=== PATIENT | female | born 1940 | race Caucasian/White ===

== ENCOUNTER 2017-06-14 09:13 | Day surgery (SDC) | payer MEDICARE, OTHER ==
[2017-06-07 14:27] VITALS: BMI 22.6
[~2017-06-14 09:13] MED LIST: LACTATED RINGERS 1,000 ML IV SCH; LIDOCAINE 1% 20 ML VIAL (10MG/ML) FOR IV START INTRADERMA PRN
[2017-06-14 10:04] VITALS: RESP 16; TEMP 97.9
[2017-06-14] MEDS: CYCLOPENTOLATE 1% OPHTH SOLN 2 ML BTL OP ONE ×3 (10:12→10:24)
[2017-06-14] MEDS: KETOROLAC 0.5% OPHTH DROPS 3 ML BTL OP ONE ×3 (10:14→10:26)
[2017-06-14] MEDS: PHENYLEPHRINE 10% OPHTH DROPS 5 ML BTL OP ONE ×3 (10:16→10:28)
[2017-06-14] MEDS: BUPIVACAINE (PF) 0.75% 5 ML, LIDOCAINE 4% (PF) 5 ML, HYALURONIDASE, HUMAN RECOMB 150 UNIT MISCELLANE ONE ×6 (11:32→11:37)
[2017-06-14] MEDS: GENTAMICIN/PREDNISOL AC OPHTH OINT 3.5GM OPHTHALMIC ONE ×2 (11:32→11:37)
[2017-06-14] MEDS ORDERED: PROPOFOL 10 MG/ML 20 ML VIAL IV ONE (11:32)
[2017-06-14] MEDS: TIMOLOL 0.5% OPHTH SOLN (PF) 0.2 ML DROPERETTE OP ONE ×2 (11:32→11:37)
[2017-06-14] MEDS ORDERED: BALANCED SALT IRRIG SOLN COMB2 15 ML IRRIG.SOLN INTRAOCULA ONE (11:37)
[2017-06-14] MEDS ORDERED: EPINEPHrine (PF) 0.5 ML in BALANCED SALT IRRIG SOLN COMB2 500 ML IRRIGATION ONE (11:37)
[2017-06-14] MEDS ORDERED: HYALURONATE SODIUM INTRAOCULAR 1 EACH SYRINGE (10MG/ML) INTRAOCULA ONE (11:37)
--- NOTE | 2017-06-14 11:51 | P.OP ---
Date of Procedure: 06/14/17 Preoperative Diagnosis: Postoperative Diagnosis: Procedure(s) Performed: PREOPERATIVE DIAGNOSIS: Cataract, left eye. POSTOPERATIVE DIAGNOSIS: Cataract, left eye. OPERATION: Phacoemulsification cataract, left eye. DESCRIPTION OF PROCEDURE: The patient was taken to the preoperative holding area. Intravenous Propofol was given so as to bring about adequate sedation. The following mixture was given for local anesthesia: 5 mL of 2% lidocaine, 5 mL of 0.75% Marcaine, and 1 mL of Wydase. Approximately 4 mL was injected in the retrobulbar space of the surgical eye. Additional 1 mL was then directed to the temporal area of the surgical eye. This was performed to allow adequate neurological block of the facial muscles. The patient was revived and then taken into the operative room. The patient was prepped and draped in the usual sterile manner for the operative eye. A lid speculum was put into position. The conjunctiva was resected back from the limbus in the 12 o'clock position. Bleeding was controlled with electrocautery. A #69 blade was then used and a half-thickness scleral incision approximately 1-mm posterior to the limbus was made on bare sclera. This was shelved in the clear cornea using a crescent knife. Next a 15-degree blade was used to make a stab incision at the 3 o' clock position at the corneolimbal interface. Keratome blade was then used and the superior wound was extended into the anterior chamber. Viscoelastic was injected into the anterior chamber and to maintain its form. Next, a cystotome was used and a continuous anterior capsulotomy was made without difficulty. Hydrodissection using a blunt cannula and BSS was performed. Phaco probe was then employed and a groove extending from 12 to 6 o'clock in the lens was created. A Soto wand was used through the stab incision so as to perform a divide and conquer technique. Next an irrigation aspiration probe was utilized and any residual cortex was removed from the eye. Again, viscoelastic was injected into the anterior chamber. An Aries posterior chamber lens implant was placed in the cartridge and injected into the anterior chamber without difficulty. The HaveMyShiftey hook was utilized to spin the lens into position and this was again performed without any difficulty. The irrigation and aspiration probe was again employed and any residual viscoelastic was removed from the eye. Then BSS was injected into the limbal stab incision and the anterior chamber re-inflated. The conjunctiva was reapproximated using electrocautery. One drop of 0.25% Timoptic was placed over the corneal along with TobraDex ophthalmic ointment. Two sterile patches and a Calderon eye shield were taped into position. The patient was transported to the recovery room in stable condition. Implants: Pathology: none sent Condition: stable Disposition: same day Indications for Procedure: Operative Findings: Description of Procedure:
[2017-06-14 12:09] VITALS: BP 133/59; PULSE 67
== END 2017-06-14 12:30 | disposition home or self-care (01) ==
LOC: OR 09:13
PROVIDERS: ATTEND Ophthalmology
DX: H26.9 Unspecified cataract (principal); I10 Essential (primary) hypertension; G80.9 Cerebral palsy, unspecified; Z86.73 Personal history of transient ischemic attack (TIA), and cerebral infarction without residual deficits; Z88.1 Allergy status to other antibiotic agents; Z79.899 Other long term (current) drug therapy; Z79.82 Long term (current) use of aspirin
CPT/HCPCS: 66984; V2632; J2001; J3470; J0171; J2704

== ENCOUNTER 2017-07-26 11:53 | Day surgery (SDC) | payer MEDICARE, OTHER ==
[2017-07-20 13:58] VITALS: BMI 22.6
[~2017-07-26 11:53] MED LIST changes: -LIDOCAINE 1% 20 ML VIAL (10MG/ML) FOR IV START INTRADERMA PRN
[2017-07-26 12:49] VITALS: TEMP 97.3
[2017-07-26] MEDS: CYCLOPENTOLATE 1% OPHTH SOLN 2 ML BTL OP ONE ×3 (12:51→13:11)
[2017-07-26] MEDS: KETOROLAC 0.5% OPHTH DROPS 5 ML BTL OP ONE ×3 (12:54→13:13)
[2017-07-26] MEDS: PHENYLEPHRINE 10% OPHTH DROPS 5 ML BTL OP ONE ×3 (12:56→13:15)
[2017-07-26] MEDS ORDERED: LIDOCAINE 1% 20 ML VIAL (10MG/ML) FOR IV START INTRADERMA ONE (13:17)
[2017-07-26] MEDS ORDERED: LIDOCAINE 1% INJ 10MG/ML (20 ML MDV) ONE (13:52)
[2017-07-26] MEDS ORDERED: PROPOFOL 10 MG/ML 20 ML VIAL IV ONE (13:52)
[2017-07-26] MEDS ORDERED: EPINEPHrine (PF) 0.5 ML in BALANCED SALT IRRIG SOLN COMB2 500 ML IRRIGATION ONE (13:58)
[2017-07-26] MEDS ORDERED: HYALURONATE SODIUM INTRAOCULAR 1 EACH SYRINGE (10MG/ML) INTRAOCULA ONE (13:59)
[2017-07-26] MEDS ORDERED: BALANCED SALT IRRIG SOLN COMB2 15 ML IRRIG.SOLN INTRAOCULA ONE (13:59)
[2017-07-26] MEDS ORDERED: TIMOLOL 0.5% OPHTH SOLN (PF) 0.2 ML DROPERETTE RIGHT EYE ONE (14:00)
--- NOTE | 2017-07-26 14:13 | P.OP ---
Date of Procedure: 07/26/17 Procedure(s) Performed: PREOPERATIVE DIAGNOSIS: Cataract, right eye. POSTOPERATIVE DIAGNOSIS: Cataract, right eye. OPERATION: Phacoemulsification cataract, right eye. DESCRIPTION OF PROCEDURE: The patient was taken to the preoperative holding area. Intravenous Propofol was given so as to bring about adequate sedation. The following mixture was given for local anesthesia: 5 mL of 2% lidocaine, 5 mL of 0.75% Marcaine, and 1 mL of Wydase. Approximately 4 mL was injected in the retrobulbar space of the surgical eye. Additional 1 mL was then directed to the temporal area of the surgical eye. This was performed to allow adequate neurological block of the facial muscles. The patient was revived and then taken into the operative room. The patient was prepped and draped in the usual sterile manner for the operative eye. A lid speculum was put into position. The conjunctiva was resected back from the limbus in the 12 o'clock position. Bleeding was controlled with electrocautery. A #69 blade was then used and a half-thickness scleral incision approximately 1-mm posterior to the limbus was made on bare sclera. This was shelved in the clear cornea using a crescent knife. Next a 15-degree blade was used to make a stab incision at the 3 o' clock position at the corneolimbal interface. Keratome blade was then used and the superior wound was extended into the anterior chamber. Viscoelastic was injected into the anterior chamber and to maintain its form. Next, a cystotome was used and a continuous anterior capsulotomy was made without difficulty. Hydrodissection using a blunt cannula and BSS was performed. Phaco probe was then employed and a groove extending from 12 to 6 o'clock in the lens was created. A Soto wand was used through the stab incision so as to perform a divide and conquer technique. Next an irrigation aspiration probe was utilized and any residual cortex was removed from the eye. Again, viscoelastic was injected into the anterior chamber. An Aries posterior chamber lens implant was placed in the cartridge and injected into the anterior chamber without difficulty. The [employer]Hy[employer]ey hook was utilized to spin the lens into position and this was again performed without any difficulty. The irrigation and aspiration probe was again employed and any residual viscoelastic was removed from the eye. Then BSS was injected into the limbal stab incision and the anterior chamber re-inflated. The conjunctiva was reapproximated using electrocautery. One drop of 0.25% Timoptic was placed over the corneal along with TobraDex ophthalmic ointment. Two sterile patches and a Calderon eye shield were taped into position. The patient was transported to the recovery room in stable condition. Pathology: none sent Condition: stable Disposition: same day
[2017-07-26 14:22] VITALS: RESP 18
[2017-07-26 14:39] VITALS: BP 140/68; PULSE 62
[2017-07-26] MEDS ORDERED: BUPIVACAINE (PF) 0.75% 5 ML, LIDOCAINE 4% (PF) 5 ML, HYALURONIDASE, HUMAN RECOMB 150 UNIT MISCELLANE ONE ×3 (23:00)
[2017-07-26] MEDS ORDERED: GENTAMICIN/PREDNISOL AC OPHTH OINT 3.5GM OPHTHALMIC ONE (23:00)
[2017-07-26] MEDS ORDERED: TIMOLOL 0.5% OPHTH SOLN (PF) 0.2 ML DROPERETTE OP ONE (23:00)
== END 2017-07-26 14:54 | disposition home or self-care (01) ==
LOC: OR 11:53
PROVIDERS: ATTEND Ophthalmology
DX: H26.9 Unspecified cataract (principal); I10 Essential (primary) hypertension; G80.9 Cerebral palsy, unspecified; E78.5 Hyperlipidemia, unspecified; Z79.82 Long term (current) use of aspirin; Z79.899 Other long term (current) drug therapy; Z88.0 Allergy status to penicillin
CPT/HCPCS: 66984; V2632; J2001 ×2; J3470; J0171; J2704

== ENCOUNTER → 2017-08-09 | Outpatient (CLI) | payer MEDICARE, OTHER ==
--- NOTE | 2017-08-12 09:34 | MM ---
Reason for exam: screening (asymptomatic). Last mammogram was performed 1 year and 11 months ago. History: Patient has history of bilateral breast cancer and is nulliparous. Excisional biopsy of both breasts. Lumpectomy of the right breast. Physical Findings: A clinical breast exam by your physician is recommended on an annual basis and results should be correlated with mammographic findings. MG 3D Screening Mammo W/Cad Bilateral CC and MLO view(s) were taken. Prior study comparison: September 06, 2015, mammogram, performed at [facility], [place]. August 23, 2014, mammogram, performed at [facility], [place]. Stable grouped calcifications 12 o'clock left breast with previous biopsy clip. Redemonstrated post surgical and post therapy change in the right breast. No significant changes when compared with prior studies. ASSESSMENT: Benign, BI-RAD 2 RECOMMENDATION: Routine screening mammogram of both breasts.
== END | disposition home or self-care (01) ==
LOC: RADMAMWWP 12:54
PROVIDERS: ATTEND Family Medicine
DX: Z12.31 Encounter for screening mammogram for malignant neoplasm of breast (principal)
CPT/HCPCS: 77063; G0202

== ENCOUNTER → 2017-10-31 | Outpatient (CLI) | payer MEDICARE, OTHER ==
--- NOTE | 2017-11-01 10:05 | BD ---
EXAMINATION TYPE: MG DEXA axial skeleton. DATE OF EXAM: 10/31/2017 COMPARISON: 06.23.2015 CLINICAL HISTORY: PT IS A 77 YR OLD FEMALE: ICD-10 CODE: Z78.0 POST MENOPAUSALW/O HRT, N95.1 Height: 57.5 Weight: 115 FRAX RISK QUESTIONS: Alcohol (3 or more units per day): NO Family History (Parent hip fracture): UNKNOWN Glucocorticoids (More than 3mos): NO (Ex: prednisone, prednisolone, methylprednisolone, dexamethasone, and hydrocortisone). History of Fracture in Adulthood: YES Secondary Osteoporosis: NO 1. Type 1 Diabetes: NO 2. Hyperthyroidism: NO 3. Menopause before 45: UNKNOWN 4. Malnutrition: NO 5. Chronic liver disease: NO Rheumatoid Arthritis: NO Current Tobacco Use: NO RISK FACTORS HISTORY OF: SHATTERED ANKLE AND NOSE, FIBULA....> AGE 50 YRS OLD Family History of Osteoporosis: SELF AND MOTHER Active: NO, WALKER Diet low in dairy products/other sources of calcium: NO Postmenopausal woman: UNKNOWN Lost more than 2 inches in height since high school: YES Frequent falls: UNSTEADY Poor Health: FRAIL Hyperparathyroidism: NO Adrenal Insufficiency: NO MEDICATIONS: Osteoporosis Medications: YES, RECLAST How Lon-4 YRS Additional Medications: BP MED, STATINS FOR CHOLESTEROL, HX OF RADIATION FOR BREAST CANCER, VIT D, Additional History: BREAST CANCER, EXAM MEASUREMENTS: Bone mineral densitometry was performed using the [employer] System. Bone mineral density as measured about the Lumbar spine is: ----- L1-L4(G/cm2): 1.136 T Score Values are as follows: ----- L1: -0.7 ----- L2: -1.2 ----- L3: -1.3 ----- L4: 1.1 ----- L1-L4: -0.4 Bone mineral density has: Decreased -4.5% SINCE 06.23.2015 STUDY Bone mineral density about the R hip (g/cm2): 0.796 Bone mineral density about the L hip (g/cm2): 0.786 T Score values are as follows: -----R Neck: -2.8 -----L Neck: -2.4 -----R Total: -1.7 -----L Total: -1.8 Bone mineral density has: Decreased -1.2% SINCE 06.23.2015 FRAX%S: THERE IS A 29.6% CHANCE OF A MAJOR OSTEOPOROTIC FX AND A 10.6% FOR HIP FX.....PROBABILITY O F FX IN 10 YRS TIME IMPRESSION: Findings compatible with osteopenia NOTE: T-SCORE=SD OF THE YOUNG ADULT MEAN.
== END | disposition home or self-care (01) ==
LOC: RADBDWWP 14:56
PROVIDERS: ATTEND Internal Medicine Hematology & Oncology
DX: M85.80 Other specified disorders of bone density and structure, unspecified site (principal); Z78.0 Asymptomatic menopausal state
CPT/HCPCS: 77080

== ENCOUNTER → 2018-09-13 | Outpatient (CLI) | payer MEDICARE, OTHER ==
--- NOTE | 2018-09-18 11:21 | MM ---
Reason for exam: screening (asymptomatic). Last mammogram was performed 1 year and 1 month ago. History: Patient is postmenopausal, has history of bilateral breast cancer, and is nulliparous. Excisional biopsy of both breasts. Lumpectomy of the right breast. Physical Findings: A clinical breast exam by your physician is recommended on an annual basis and results should be correlated with mammographic findings. MG 3D Screening Mammo W/Cad Bilateral CC and MLO view(s) were taken. Prior study comparison: August 09, 2017, bilateral MG 3d screening mammo w/cad. September 06, 2015, mammogram, performed at [facility]. The breast tissue is heterogeneously dense. This may lower the sensitivity of mammography. There are regional left calcifications similar to priors with an associated biopsy marker. There is an increasing focal asymmetry at the lumpectomy site in the upper outer quadrant at posterior depth on the right. ASSESSMENT: Incomplete: need additional imaging evaluation, BI-RAD 0 RECOMMENDATION: Special view mammogram of the right breast. If lesion persists on supplemental views, image directed ultrasound is recommended. [facility] will attempt to contact patient to return for supplemental views and ultrasound if indicated.
== END | disposition home or self-care (01) ==
LOC: RADMAMWWP 16:08
PROVIDERS: ATTEND Family Medicine
DX: Z12.31 Encounter for screening mammogram for malignant neoplasm of breast (principal); C50.919 Malignant neoplasm of unspecified site of unspecified female breast
CPT/HCPCS: 77063; 77067

== ENCOUNTER → 2018-10-05 | Outpatient (CLI) | payer MEDICARE, OTHER ==
--- NOTE | 2018-10-06 09:40 | MM ---
Reason for exam: additional evaluation requested from abnormal screening. Last mammogram was performed 1 month ago. History: Patient is postmenopausal, has history of bilateral breast cancer, and is nulliparous. Excisional biopsy of both breasts. Lumpectomy of the right breast. Physical Findings: Nurse did not find any significant physical abnormalities on exam. MG 3D Work Up W/Cad RT CC and MLO view(s) were taken of the right breast. Prior study comparison: September 13, 2018, bilateral MG 3d screening mammo w/cad. August 09, 2017, bilateral MG 3d screening mammo w/cad. The breast tissue is heterogeneously dense. This may lower the sensitivity of mammography. No distinct lesion persists. Stable distortion posterior right upper outer quadrant. These results were verbally communicated with the patient and result sheet given to the patient on 10/05/18. ASSESSMENT: Benign, BI-RAD 2 RECOMMENDATION: Follow-up diagnostic mammogram of both breasts in 1 year.
== END | disposition home or self-care (01) ==
LOC: RADMAMWWP 12:29
PROVIDERS: ATTEND Family Medicine
DX: R92.8 Other abnormal and inconclusive findings on diagnostic imaging of breast (principal)
CPT/HCPCS: 77065; G0279; 77061

== ENCOUNTER → 2019-10-08 | Outpatient (CLI) | payer MEDICARE ==
--- NOTE | 2019-10-08 13:49 | BD ---
EXAMINATION TYPE: Axial Bone Density DATE OF EXAM: 10/08/2019 COMPARISON: 10/31/2017 CLINICAL HISTORY: M 89.9 Height: 58 Weight: 107.0 FRAX RISK QUESTIONS: Alcohol (3 or more units per day): no Family History (Parent hip fracture): no Glucocorticoids (More than 3mos): no (Ex: prednisone, prednisolone, methylprednisolone, dexamethasone, and hydrocortisone). History of Fracture in Adulthood: yes Secondary Osteoporosis: 1. Type 1 Diabetes: no 2. Hyperthyroidism: no 3. Menopause before 45: no 4. Malnutrition: no 5. Chronic liver disease: no Rheumatoid Arthritis: no Current Tobacco Use: no RISK FACTORS HISTORY OF: Family History of Osteoporosis: yes Active: sometimes Diet low in dairy products/other sources of calcium: no Postmenopausal woman: age 50 MEDICATIONS: lisinopril, potassium, hctz, baby aspirin Additional History: EXAM MEASUREMENTS: Bone mineral densitometry was performed using the [employer]. Bone mineral density as measured about the Lumbar spine is: ----- L1-L4(G/cm2): 1.080 T Score Values are as follows: ----- L2: -1.5 ----- L3: -0.9 ----- L4: -0.1 ----- L1-L4: -0.8 Bone mineral density has: decreased -0.8 % since study of 10.31.2017 Bone mineral density about the R hip (g/cm2): 0.640 Bone mineral density about the L hip (g/cm2): .0698 T Score values are as follows: -----R Neck: -2.9 -----L Neck: -2.4 -----R Total: -1.9 -----L Total: -1.9 Bone mineral density has: decreased -2.9 % since study of: 10.31.2017 IMPRESSION: Osteoporosis (T Score less than -2.5). There is increased fracture risk and therapy is usually indicated based on age. Re-Screen 1-2 years. NOTE: T-SCORE=SD OF THE YOUNG ADULT MEAN.
--- NOTE | 2019-10-09 10:41 | MM ---
Reason for exam: screening (asymptomatic). Last mammogram was performed 1 year ago. History: Patient is postmenopausal, has history of bilateral breast cancer, and is nulliparous. Excisional biopsy of both breasts. Lumpectomy of the right breast. Physical Findings: A clinical breast exam by your physician is recommended on an annual basis and results should be correlated with mammographic findings. MG 3D Screening Mammo W/Cad Bilateral CC and MLO view(s) were taken. Prior study comparison: October 05, 2018, right breast MG 3d work up w/cad RT. September 13, 2018, bilateral MG 3d screening mammo w/cad. The breast tissue is extremely dense which could obscure a lesion on mammography. Finding #1: Architectural distortion in the right breast consistent with known lumpectomy changes. Finding #2: There are round, regional calcifications in the left breast. Previous mammotome biopsy in the left breast. New 12mm lesion near clips. ASSESSMENT: Incomplete: need additional imaging evaluation, BI-RAD 0 RECOMMENDATION: Ultrasound of the right breast. [facility] will attempt to contact patient to return for ultrasound.
== END | disposition home or self-care (01) ==
LOC: RADMAMWWP 12:11
PROVIDERS: ATTEND Family Medicine
DX: Z12.31 Encounter for screening mammogram for malignant neoplasm of breast (principal); M81.0 Age-related osteoporosis without current pathological fracture
CPT/HCPCS: 77063; 77067; 77080

== ENCOUNTER → 2019-10-10 | Outpatient (CLI) | payer MEDICARE ==
--- NOTE | 2019-10-10 10:48 | US ---
EXAMINATION TYPE: US abdomen limited DATE OF EXAM: 10/10/2019 COMPARISON: NONE CLINICAL HISTORY: R74.8 Abnormal levels of other serum enzymes. EXAM MEASUREMENTS: Liver Length: 12.1 cm Gallbladder Wall: .3 cm CBD: .5 cm Right Kidney: 8.8 x 4.9 x 4.6 cm Pancreas: wnl Liver: wnl Gallbladder: No stones seen Evidence for sonographic Hernandez's sign: No CBD: wnl Right Kidney: Cystic areas vs. hydronephrosis seen. IMPRESSION: No worrisome intrahepatic masses or intrahepatic ductal dilatation. Probable simple appea ring parapelvic cyst centrally right kidney. Right-sided hydronephrosis is felt less likely. Correlat ed clinically with renal lab values.
== END | disposition home or self-care (01) ==
LOC: RADUSWWP 08:17
PROVIDERS: ATTEND Internal Medicine Gastroenterology
DX: R74.8 Abnormal levels of other serum enzymes (principal)
CPT/HCPCS: 76705

== ENCOUNTER → 2019-10-31 | Outpatient (CLI) | payer MEDICARE ==
--- NOTE | 2019-10-31 11:17 | USB ---
Reason for exam: additional evaluation requested from abnormal screening. History: Patient is postmenopausal, has history of bilateral breast cancer, and is nulliparous. Excisional biopsy of both breasts. Lumpectomy of the right breast. Physical Findings: Nurse Summary: thickened bilaterally, nodular, patient states she has cerebral palsy, deformities right side (nurse TM). US Breast Workup Limited RT Technologist: Gwen Martínez Right limited breast ultrasound including focal area of concern, retroareolar and axilla demonstrates no cystic or solid lesion seen. These results were verbally communicated with the patient and result sheet given to the patient on 10/31/19. ASSESSMENT: Negative, BI-RAD 1 RECOMMENDATION: Surgical consultation and stereotactic core biopsy of the right breast. (right breast density 1cm transverse dimension, 3cm from nipple) Called Dr. Birmingham's office with mammographic findings and has scheduled an appointment for the patient for 12/06/19 at 9:[address] Santos. Biopsy scheduled for 12/07/19 at 8:00. PRELIMINARY REPORT CALLED AND FAXED TO DR. SANTOS ON 10/31/19.
== END | disposition home or self-care (01) ==
LOC: RADUSWWP 08:14
PROVIDERS: ATTEND Family Medicine
DX: R92.8 Other abnormal and inconclusive findings on diagnostic imaging of breast (principal)

== ENCOUNTER → 2019-11-19 | Day surgery (SDC) | payer MEDICARE ==
[~2019-11-19] MED LIST changes: +HYDROmorphone 1 MG/ML 1 ML SYRINGE IVP STA; -LACTATED RINGERS 1,000 ML IV SCH
[2019-11-19 09:15] LABS: Mean Platelet Volume 7.4; Platelet Count 189 k/uL (150-450)
[2019-11-19 09:29] LABS: Prothrombin Time 10.8 sec (9.0-12.0)
[2019-11-19 09:31] LABS: ALT 138 U/L (4-34); AST 129 U/L (14-36); African American GFR (CKD) >90 (>60 ml/min/1.73 sqM); Albumin 4.3 g/dL (3.5-5.0); Alkaline Phosphatase 78 U/L (38-126); Anion Gap 6 mmol/L; Blood Urea Nitrogen 26 mg/dL (7-17); Calcium 9.3 mg/dL (8.4-10.2); Carbon Dioxide 30 mmol/L (22-30); Chloride 103 mmol/L (98-107); Glucose 107 mg/dL (74-99); Non-African American GFR(CKD) 82 (>60 ml/min/1.73 sqM); Potassium 4.1 mmol/L (3.5-5.1); Sodium 139 mmol/L (137-145)
[2019-11-19 09:43] VITALS: RESP 16; TEMP 97.8
--- NOTE | 2019-11-19 12:56 | US ---
EXAMINATION TYPE: US biopsy liver DATE OF EXAM: 11/19/2019 HISTORY: Elevated liver function tests. PROCEDURE: Maximal barrier technique was utilized. After informed consent, the skin overlying a suit able path to the liver was localized using ultrasound, the skin was prepped and draped. Ultrasound w as utilized with sterile technique. Lidocaine was used for local anesthesia. A skin layo made with a scalpel. Under direct ultrasound guidance, an 18-gauge needle was advanced into the left lobe of th e liver and core biopsy obtained. Hemostasis was achieved. There was no immediate complication and patient remained in stable condition. Specimen submitted in formalin to Pathology. IMPRESSION: STATUS POST ULTRASOUND GUIDED CORE BIOPSY OF THE LEFT LOBE OF THE LIVER, PATHOLOGY JACK Sanders PERFORMED BY THE UNDERSIGNED.
[2019-11-19 14:29] VITALS: BP 114/58; PULSE 81
== END ==
LOC: RADPROMAIN 08:35
PROVIDERS: ATTEND Internal Medicine Gastroenterology
DX: K73.9 Chronic hepatitis, unspecified (principal); C50.911 Malignant neoplasm of unspecified site of right female breast
CPT/HCPCS: 80053; 85049; 85610; 88313 ×2; 88307; 88342; 96374; 36415; 47000; 76942; J1170

== ENCOUNTER → 2019-12-06 | Outpatient (CLI) | payer MEDICARE ==
[2019-12-06 11:07] VITALS: BP 141/79; PULSE 81; RESP 18; TEMP 97.4
--- NOTE | 2019-12-06 11:43 | P.GSHP ---
History of Present Illness H&P Date: 12/06/19 Chief Complaint: abnormal mammogram of hte right breast Cassy is a 79 year old white female status post bilateral screening mammogram on [id number]. She is seen in consultation for radiographic abnormality of hte right breast for DR. Birmingham. This revealed #1 architectural distortion in the right breast consistent with no lumpectomy changes and #2 wound regional calcifications in the left breast previous mammotome biopsy of the left. Ultrasound of the right breast was recommended. On ultrasound the patient was noted to have no cystic or solid lesions of concern. Surgical consultation and stereotactic core biopsy of the right breast 1 cm transverse dimension breast density was recommended. The patient does not feel any new changes in her breast. She does not complain of any new lumps masses nodules in her breast. She is not complaining of any nipple discharge or skin changes. She is status post right breast lumpectomy > ten years ago. She had radiation therapy. She did not have chemotherapy, but did have tamoxifen for 10 years. Family History: patient: right breast cancer Hormonal History: menarche: 14 G0 menopause: 50 BCP: none hormones: none Surgical History: appy right lumpectomy/axillary node sampling tonsilectomy leg Medical History: history of right breast cancer liver disease uses a walker arthritis cerebral palsy chronic hepatitis primary biliary cholangitis Social History: smoke: none alcohol: none drugs: none - Constitutional Constitutional: Denies chills, Denies fever - EENT Comment: bilateral cataract surgery Eyes: denies blurred vision, denies pain Ears: deny: decreased hearing, tinnitus Ears, nose, mouth and throat: Denies headache, Denies sore throat - Breasts Breasts: bilateral: as per HPI - Cardiovascular Cardiovascular: Denies chest pain, Denies shortness of breath - Respiratory Respiratory: Denies cough, Denies 7 - Gastrointestinal Gastrointestinal: Denies abdominal pain, Denies diarrhea, Denies nausea, Denies vomiting - Genitourinary (Female) Genitourinary: Denies dysuria, Denies hematuria - Menstruation Menstruation: Reports postmenopausal - Musculoskeletal Comment: arthritis, cerebral palsy - Integumentary Integumentary: Denies pruritus, Denies rash - Neurological Comment: right side paralyses, TIA Neurological: Reports numbness - Psychiatric Psychiatric: Denies anxiety, Denies depression - Endocrine Endocrine: Denies fatigue, Denies weight change - Hematologic/Lymphatic Comment: none - Allergic/Immunologic Allergic/Immunologic: Reports as per HPI Past Medical History Past Medical History: Cancer, CVA/TIA, Hyperlipidemia, Hypertension, Osteoarthritis (OA) Additional Past Medical History / Comment(s): HX OF TIA, DOUBLE CURVATURE OF SPINE, CEREBRAL PALSEY WITH WEAKNESS RIGHT SIDE AND OCCASIONAL PROBLEMS WITH BALANCE. , USES WALKER FOR DISTANCE. , HX OF BREAST CANCER WITH 33 RADIATION [place] (1999). History of Any Multi-Drug Resistant Organisms: None Reported Past Surgical History: Appendectomy, Breast Surgery, Orthopedic Surgery, Tonsillectomy Additional Past Surgical History / Comment(s): RIGHT BREAST BX AND LUMPECTOMY, LEFT LEG SURGERY WITH PLATES AND PINS. liver bx Past Anesthesia/Blood Transfusion Reactions: No Reported Reaction Past Psychological History: No Psychological Hx Reported Smoking Status: Never smoker Past Alcohol Use History: None Reported Past Drug Use History: None Reported - Past Family History Mother Family Medical History: No Reported History Medications and Allergies Home Medications Medication Instructions Recorded Confirmed Type Aspirin [Adult Low Dose Aspirin EC] 81 mg PO DAILY 06/07/17 12/06/19 History Hydrochlorothiazide 25 mg PO DAILY 06/07/17 12/06/19 History Lisinopril 40 mg PO HS 06/07/17 12/06/19 History Potassium Chloride [K-Tab ER] 10 meq PO DAILY 06/07/17 12/06/19 History Ubidecarenone [Co Q-10] 100 mg PO DAILY 06/07/17 12/06/19 History Cholecalciferol [Vitamin D3] 5,000 unit PO DAILY 07/20/17 12/06/19 History Allergies Allergy/AdvReac Type Severity Reaction Status Date / Time amoxicillin Allergy Rash/Hives Verified 12/06/19 11:07 Surgical - Exam Vital Signs Temp Pulse Resp BP Pulse Ox 97.4 F L 81 18 141/79 97 12/06/19 11:04 12/06/19 11:04 12/06/19 11:04 12/06/19 11:04 12/06/19 11:04 BMI 21.3 - General well developed, well nourished, no distress - Eyes normal ocular movement - ENT normal pinna, no hearing loss - Neck no masses, trachea midline - Respiratory normal expansion, normal respiratory effort, clear to auscultation - Cardiovascular Rhythm: regular Heart Sounds: normal: S1, S2 - Abdomen Abdomen: soft, non tender, no guarding, no rigid, no rebound - Integumentary normal turgor - Neurologic uses a walker no disoriented, no combative - Musculoskeletal uses a walker - Psychiatric oriented to time, oriented to person, oriented to place, speech is normal, memory intact breast exam: insection: right breast changes related to lumpectomy. no nipple inversion palpation: Plate breasts: Well-healed scar from prior lumpectomy, fibrocystic changes, no dominant masses or nodules of concern Right axilla: No adenopathy of concern Left breast: Multi-positional exam no dominant masses or nodules of concern, well-healed scar from prior surgery, the cystic changes Left axilla: No adenopathy of concern Results Mammogram and ultrasound results reviewed Assessment and Plan Assessment: Impression: 1. Cerebral palsy with weakness on the right upper extremity 2. Prior TIA 3. Prior right breast cancer treated with lumpectomy/sentinel node biopsy/hormonal therapy/radiation therapy 4. No physical evidence of recurrent cancer in the right breast 5. Abnormal right breast mammogram 6. Fibrocystic breast changes Plan: 1. Right breast stereotactic core biopsy 2. Medical management of medical conditions 3. cleared from GI talked with DR. Hinds's office 4. PT/INR Risk and benefits of procedure discussed with the patient and her sister understand and wish to proceed. Dr. Birmingham Encounter 45 minutes, > 50 % of time in planning and counselling Time with Patient: Greater than 30
[2019-12-06 12:47] LABS: Prothrombin Time 10.7 sec (9.0-12.0)
== END ==
LOC: WWCWWP 10:31
PROVIDERS: ATTEND Surgery
DX: K73.9 Chronic hepatitis, unspecified (principal)
CPT/HCPCS: 85610

== ENCOUNTER → 2020-02-06 | Outpatient (CLI) | payer MEDICARE ==
[2020-02-06 16:01] LABS: T4, Free (Free Thyroxine) 1.2 ng/dL (0.80-1.80)
[2020-02-06 16:02] LABS: African American GFR (CKD) 81.3 (60.0-200.0); Albumin 4.6 g/dL (3.80-4.90); Albumin/Globulin Ratio 1.44 (1.60-3.17); Anion Gap 11.1 mmol/L (4.00-12.00); BUN/Creat Ratio 27.5 Ratio (12.00-20.00); Calcium 9.9 mg/dL (8.7-10.3); Carbon Dioxide 28.9 mmol/L (21.6-31.8); Globulin 3.2 g/dL (1.6-3.3); Non-African American GFR(CKD) 70.1 (60.0-200.0); Potassium 4.3 mmol/L (3.5-5.5); Total Protein 7.8 g/dL (6.2-8.2)
== END | disposition home or self-care (01) ==
LOC: LABWHC1 10:01
PROVIDERS: ATTEND Nurse Practitioner
DX: K74.3 Primary biliary cirrhosis (principal)
CPT/HCPCS: 36415; 80053; 84439; 84443; 84590

== ENCOUNTER → 2020-03-10 | Outpatient (CLI) | payer MEDICARE ==
[2020-03-10 12:03] LABS: Basophils % (A) 1 %; Eosinophils # (A) 0.1 k/uL (0-0.7); Eosinophils % (A) 1 %; HCT 39.7 % (34.0-46.0); HGB 12.9 gm/dL (11.4-16.0); Lymphocytes # (A) 0.9 k/uL (1.0-4.8); Lymphocytes % (A) 19 %; MCH 31.2 pg (25.0-35.0); MCHC 32.5 g/dL (31.0-37.0); MCV 95.9 fL (80.0-100.0); Mean Platelet Volume 7.2; Monocytes # (A) 0.3 k/uL (0-1.0); Monocytes % (A) 6 %; Neutrophils # (A) 3.3 k/uL (1.3-7.7); Neutrophils % (A) 71 %; Platelet Count 211 k/uL (150-450); RBC 4.14 m/uL (3.80-5.40); RDW 13.3 % (11.5-15.5); WBC 4.6 k/uL (3.8-10.6)
[2020-03-10 16:21] LABS: African American GFR (CKD) 80.7 (60.0-200.0); Albumin 4.1 g/dL (3.80-4.90); Albumin/Globulin Ratio 1.46 (1.60-3.17); Anion Gap 6.4 mmol/L (4.00-12.00); BUN/Creat Ratio 31.25 Ratio (12.00-20.00); Calcium 9.7 mg/dL (8.7-10.3); Carbon Dioxide 28.6 mmol/L (21.6-31.8); Globulin 2.8 g/dL (1.6-3.3); Non-African American GFR(CKD) 69.6 (60.0-200.0); Potassium 4.2 mmol/L (3.5-5.5); Total Bilirubin 0.9 mg/dL (0.2-1.2); Total Protein 6.9 g/dL (6.2-8.2)
== END | disposition home or self-care (01) ==
LOC: LABWHC1 11:01
PROVIDERS: ATTEND Internal Medicine
DX: K74.3 Primary biliary cirrhosis (principal); R89.4 Abnormal immunological findings in specimens from other organs, systems and tissues
CPT/HCPCS: 36415; 80053; 85025

== ENCOUNTER → 2020-04-23 | Outpatient (CLI) | payer MEDICARE ==
[2020-04-23 18:48] LABS: Albumin 4.5 g/dL (3.80-4.90); Albumin/Globulin Ratio 1.5 (1.60-3.17); Bilirubin, Conjugated 0.3 mg/dL (0.20-0.40); Bilirubin,Unconjugated 1.2 mg/dL; Total Bilirubin 1.5 mg/dL (0.3-1.2); Total Protein 7.5 g/dL (6.2-8.2)
== END | disposition home or self-care (01) ==
LOC: LABWHC1 10:01
PROVIDERS: ATTEND Nurse Practitioner
DX: K74.3 Primary biliary cirrhosis (principal)
CPT/HCPCS: 36415; 80076

== ENCOUNTER → 2020-05-02 | Outpatient (CLI) | payer MEDICARE | END | disposition home or self-care (01) | LOC: LABWHC1 12:06 | PROVIDERS: ATTEND Nurse Practitioner | DX: K74.3 Primary biliary cirrhosis (principal) | CPT/HCPCS: 36415 ==

== ENCOUNTER → 2020-05-28 | Outpatient (CLI) | payer MEDICARE ==
[2020-05-28 19:51] LABS: Albumin 4.1 g/dL (3.80-4.90); Albumin/Globulin Ratio 1.71 (1.60-3.17); Bilirubin, Conjugated 0.2 mg/dL (0.20-0.40); Bilirubin,Unconjugated 0.6 mg/dL; Globulin 2.4 g/dL (1.6-3.3); Total Bilirubin 0.8 mg/dL (0.2-1.2); Total Protein 6.5 g/dL (6.2-8.2)
== END | disposition home or self-care (01) ==
LOC: LABWHC1 13:08
PROVIDERS: ATTEND Nurse Practitioner
DX: K74.3 Primary biliary cirrhosis (principal)
CPT/HCPCS: 36415; 80076; 82542; 82657

== ENCOUNTER → 2020-06-09 | Outpatient (CLI) | payer MEDICARE ==
[~2020-06-09] MED LIST changes: -HYDROmorphone 1 MG/ML 1 ML SYRINGE IVP STA; +SODIUM CHLORIDE 0.9% 500 ML 500 ML in EMPTY BAG 1 BAG IV PRN; +ZOLEDRONIC ACID 5 MG in SODIUM CHLORIDE 0.9% 100 ML IV NR
[2020-06-09 13:19] VITALS: BP 133/78; PULSE 99; RESP 16; TEMP 97.6
== END | disposition home or self-care (01) ==
LOC: PROCWHC3 12:59
PROVIDERS: ATTEND Family Medicine
DX: M81.0 Age-related osteoporosis without current pathological fracture (principal)
CPT/HCPCS: 96365; J3489

== ENCOUNTER → 2020-07-22 | Outpatient (CLI) | payer MEDICARE ==
[2020-07-22 14:05] LABS: HCT 36.7 % (34.0-46.0); HGB 11.8 gm/dL (11.4-16.0); MCH 30.7 pg (25.0-35.0); MCHC 32.3 g/dL (31.0-37.0); MCV 95.1 fL (80.0-100.0); Mean Platelet Volume 6.7; Platelet Count 310 k/uL (150-450); RBC 3.85 m/uL (3.80-5.40); RDW 13.6 % (11.5-15.5); WBC 6.6 k/uL (3.8-10.6)
[2020-07-23 04:08] LABS: Albumin 3.9 g/dL (3.80-4.90); Albumin/Globulin Ratio 1.86 (1.60-3.17); Bilirubin, Conjugated 0.2 mg/dL (0.20-0.40); Bilirubin,Unconjugated 0.6 mg/dL; Globulin 2.1 g/dL (1.6-3.3); Total Bilirubin 0.8 mg/dL (0.2-1.2)
== END | disposition home or self-care (01) ==
LOC: LABWHC1 12:23
PROVIDERS: ATTEND Nurse Practitioner
DX: K74.3 Primary biliary cirrhosis (principal)
CPT/HCPCS: 36415; 80076; 85027

== ENCOUNTER → 2020-12-22 | Outpatient (CLI) | payer MEDICARE ==
--- NOTE | 2020-12-22 09:27 | US ---
EXAMINATION TYPE: US liver DATE OF EXAM: 12/22/2020 COMPARISON: US 2019 CLINICAL HISTORY: 80-year-old female K74.3 Primary Bilary Cirrhosis. Patient states no symptoms TECHNIQUE: Multiple sonographic images of the right upper quadrant are obtained. FINDINGS: EXAM MEASUREMENTS: Liver Length: 12.6 cm Gallbladder Wall: 0.2 cm CBD: 0.5 cm Right Kidney: 8.8 x 4.5 x 4.7 cm Pancreas: visualized portions wnl, limited by overlying midline bowel gas Liver: heterogeneous, mild nodular contour. No focal lesion seen. Gallbladder: wnl Evidence for sonographic Hernandez's sign: no CBD: 0.5cm, at pancreas head 0.7cm Right Kidney: multiple parapelvic cysts. Hydronephrosis considered unlikely as no dilated renal pelv is is seen. The appearance is unchanged from 10/10/2019. IMPRESSION: 1. Cirrhotic morphology of the liver. No focal lesion seen. 2. Hepatic duct caliber is stable at 5 mm. 3. No gallstones. 4. Suggestion of multiple right-sided parapelvic renal cysts.
== END ==
LOC: RADUSWWP 07:57
PROVIDERS: ATTEND Internal Medicine Gastroenterology
DX: K74.3 Primary biliary cirrhosis (principal)
CPT/HCPCS: 76705

== ENCOUNTER → 2021-01-20 | Outpatient (CLI) | payer MEDICARE ==
[2021-01-20 15:54] LABS: HCT 39.3 % (37.2-46.3); HGB 12.7 g/dL (12.0-15.0); MCH 30.1 pg (27.0-32.0); MCHC 32.3 g/dL (32.0-37.0); MCV 93.1 fL (80.0-97.0); Mean Platelet Volume 10.8 fL (9.5-12.2); Platelet Count 269 X 10*3/uL (140-440); RBC 4.22 X 10*6/uL (4.10-5.20); RDW 12.8 % (11.5-14.5); WBC 5.49 X 10*3/uL (4.50-10.00)
[2021-01-20 16:21] LABS: Albumin 4.6 g/dL (3.80-4.90); Bilirubin, Conjugated 0.2 mg/dL (0.20-0.40); Bilirubin,Unconjugated 0.3 mg/dL; Globulin 2.3 g/dL (1.6-3.3); Total Bilirubin 0.5 mg/dL (0.2-1.2); Total Protein 6.9 g/dL (6.2-8.2)
== END | disposition home or self-care (01) ==
LOC: LABWHC1 08:34
PROVIDERS: ATTEND Nurse Practitioner
DX: K74.3 Primary biliary cirrhosis (principal)
CPT/HCPCS: 36415; 80076; 82105; 85027

== ENCOUNTER → 2021-08-05 | Outpatient (CLI) | payer MEDICARE ==
--- NOTE | 2021-08-05 11:04 | MM ---
Reason for exam: additional evaluation requested from prior study. Last mammogram was performed 1 year and 10 months ago. History: Patient is postmenopausal, has history of bilateral breast cancer, and is nulliparous. Excisional biopsy of both breasts. Lumpectomy of the right breast. Physical Findings: Nurse did not find any significant physical abnormalities on exam. MG 3D Diag Mammo W/Cad STEPH Bilateral CC and MLO view(s) were taken. Prior study comparison: October 08, 2019, bilateral MG 3d screening mammo w/cad. September 13, 2018, bilateral MG 3d screening mammo w/cad. The breast tissue is heterogeneously dense. This may lower the sensitivity of mammography. Asymmetric breast tissue greater in the left breast. No significant new findings when compared with previous films. These results were verbally communicated with the patient and result sheet given to the patient on 08/05/21. ASSESSMENT: Benign, BI-RAD 2 RECOMMENDATION: Routine screening mammogram of both breasts in 1 year.
== END | disposition home or self-care (01) ==
LOC: RADMAMWWP 09:54
PROVIDERS: ATTEND Family Medicine
DX: N64.89 Other specified disorders of breast (principal); Z78.0 Asymptomatic menopausal state; Z85.3 Personal history of malignant neoplasm of breast
CPT/HCPCS: 77066; G0279; 77062

== ENCOUNTER → 2021-08-06 | Outpatient (CLI) | payer MEDICARE ==
[2021-08-06 12:23] VITALS: BP 136/85; PULSE 80; RESP 16; TEMP 98.4
== END ==
LOC: PROCWHC3 11:38
PROVIDERS: ATTEND Family Medicine
DX: M81.0 Age-related osteoporosis without current pathological fracture (principal); Z88.1 Allergy status to other antibiotic agents
CPT/HCPCS: 96365; J3489

== ENCOUNTER → 2022-01-25 | Outpatient (CLI) | payer MEDICARE ==
--- NOTE | 2022-01-25 11:58 | US ---
EXAMINATION TYPE: US liver DATE OF EXAM: 01/25/2022 COMPARISON: 06/24/2021 CLINICAL HISTORY: 81-year-old female K74.3 PRIMARY BILIARY CIRRHOSIS. TECHNIQUE: Multiple sonographic images of the right upper quadrant are obtained. FINDINGS: EXAM MEASUREMENTS: Liver Length: 11.6 cm Gallbladder Wall: 0.2 cm CBD: 0.4 cm Right Kidney: 8.5 x 4.7 x 5.7 cm Pancreas: not well visualized due to bowel gas. Liver: Coarsened echotexture. No focal lesion seen. Gallbladder: No stones seen Evidence for sonographic Hernandez's sign: No CBD: wnl Right Kidney: Parapelvic cysts are noted. The cystic structures do not the neck, arguing against hydr onephrosis. IMPRESSION: 1. Coarsened hepatic parenchyma suggesting nonspecific hepatocellular disease. No focal lesion. 2. No gallstones or biliary ductal dilatation.
[2022-01-25 14:18] LABS: HGB 12.6 g/dL (12.0-15.0); MCH 29.7 pg (27.0-32.0); MCHC 32.3 g/dL (32.0-37.0); Mean Platelet Volume 10.9 fL (9.5-12.2); NRBC Per 100 WBC 0 /100 WBCS (0.0-0.0); Platelet Count 260 X 10*3/uL (140-440); RBC 4.24 X 10*6/uL (4.10-5.20); RDW 12.7 % (11.5-14.5); WBC 7.03 X 10*3/uL (4.50-10.00)
[2022-01-25 15:55] LABS: ALT 20 U/L (8-44); AST 21 U/L (13-35); Albumin 4.8 g/dL (3.8-4.9); Albumin/Globulin Ratio 1.78 (1.60-3.17); Alkaline Phosphatase 77 U/L (41-126); Bilirubin, Conjugated <0.20 mg/dL (0.20-0.40); Globulin 2.7 g/dL (1.6-3.3); Total Protein 7.5 g/dL (6.2-8.2)
== END | disposition home or self-care (01) ==
LOC: RADUSWWP 08:47
PROVIDERS: ATTEND Internal Medicine Gastroenterology
DX: K76.89 Other specified diseases of liver (principal)
CPT/HCPCS: 76705; 80076; 82105; 85027

== ENCOUNTER 2022-03-29 14:47 | Inpatient (IN) | payer MEDICARE ==
[2022-03-29] MEDS ORDERED: SODIUM CHLORIDE 0.9% 500 ML 500 ML IV ONE (15:07)
[2022-03-29 15:41] LABS: ALT 19 U/L (4-34); AST 21 U/L (14-36); African American GFR (CKD) 18 (>60 ml/min/1.73 sqM); Albumin 4.7 g/dL (3.5-5.0); Alkaline Phosphatase 106 U/L (38-126); Anion Gap 19 mmol/L; Calcium 9.9 mg/dL (8.4-10.2); Carbon Dioxide 20 mmol/L (22-30); Chloride 99 mmol/L (98-107); Non-African American GFR(CKD) 15 (>60 ml/min/1.73 sqM); Potassium 5.8 mmol/L (3.5-5.1); Sodium 138 mmol/L (137-145); Total Bilirubin 0.8 mg/dL (0.2-1.3); Total Protein 7.6 g/dL (6.3-8.2)
[2022-03-29 15:51] LABS: Basophils % (A) 0 %; Eosinophils % (A) 0 %; HCT 45.2 % (34.0-46.0); Hypochromasia Moderate; Lymphocytes # (A) 0.7 k/uL (1.0-4.8); Lymphocytes % (A) 6 %; MCHC 30.9 g/dL (31.0-37.0); MCV 100.3 fL (80.0-100.0); Mean Platelet Volume 9.2; Monocytes # (A) 0.4 k/uL (0-1.0); Monocytes % (A) 4 %; Neutrophils # (A) 9.6 k/uL (1.3-7.7); Neutrophils % (A) 89 %; Platelet Count 269 k/uL (150-450); Prothrombin Time 10.8 sec (9.0-12.0); RBC 4.51 m/uL (3.80-5.40); WBC 10.8 k/uL (3.8-10.6)
--- NOTE | 2022-03-29 15:52 | CT ---
EXAMINATION TYPE: CT brain fletcherine wo con DATE OF EXAM: 03/29/2022 COMPARISON: Unavailable HISTORY: ams CT DLP: 1247 mGycm Automated exposure control for dose reduction was used. TECHNIQUE: CT scan of the head and cervical spine are performed without contrast. FINDINGS: Brain volume loss changes, likely age-related. There is no acute intracranial hemorrhage, mass effect , or midline shift identified. The ventricles and sulci are within normal limits in size. The globe s are intact and the visualized sinuses are clear. Partially opacified mastoid air cells. Retrolisthesis of C3 over C4, C4 over C5 with anterolisthesis of C6 over C7, likely degenerative. No definite vertebral body collapse or acute displaced fracture. Unremarkable atlantoaxial and atlantooc cipital articulations. Degenerative changes of the cervical spine most evident at C5-6, C6-7 and C7-T1 levels. Multilevel fa cet osteoarthropathy is also noted. No significant bony central spinal canal stenosis. Multilevel dandre ral foraminal stenosis is noted. Scattered arterial atherosclerotic calcification. Small thyroid glan d. No paraspinal lesion. IMPRESSION: 1. No acute traumatic bony injury of the cervical spine. 2. No acute intracranial hemorrhage, mass effect, or midline shift is seen. 3. Incidental findings as described above.
[2022-03-29 15:53] LABS: Glucose,Whole Blood >600 mg/dL (75-99)
[2022-03-29 15:55] LABS: VBG PH 7.35 (7.31-7.41)
--- NOTE | 2022-03-29 15:56 | XR ---
EXAMINATION TYPE: XR chest 2V DATE OF EXAM: 03/29/2022 COMPARISON: None HISTORY: 82-year-old female confusion, altered mental status TECHNIQUE: Frontal and lateral views FINDINGS: Dextroconvex scoliosis near the thoracolumbar junction. Heart normal size. Aorta and pulmonary vascul ature are within normal limits. No consolidation or pleural effusion. Rounded calcification projectin g at the right base, possible calcified granuloma versus external artifact. IMPRESSION: Dextroconvex scoliosis at the thoracolumbar junction. No definite acute process.
[2022-03-29 16:04] LABS: Blood Urea Nitrogen 114 mg/dL (7-17)
[2022-03-29 16:06] LABS: Glucose 969 mg/dL (74-99); Lactic Acid, Venous 2.4 mmol/L (0.7-2.0)
[2022-03-29 17:03] LABS: T4, Free (Free Thyroxine) 1.29 ng/dL (0.78-2.19)
[2022-03-29] MEDS ORDERED: SODIUM CHLORIDE 0.9% 1,000 ML IV ONE (17:04)
--- NOTE | 2022-03-29 17:37 | ED ---
Altered Mental Status HPI - General Chief Complaint: Altered Mental Status Stated Complaint: AMS Time Seen by Provider: 03/29/22 14:59 Source: EMS Mode of arrival: EMS Limitations: altered mental status - History of Present Illness Initial Comments: 82-year-old female who presents to the emergency department for weakness since Tuesday. She normally lives alone, ambulates with a walker. States that she has been so weak she has barely gotten out of bed. Her sister is at bedside and took her to an urgent care on . She was swabbed for Covid. She was told that she was having a medication side effect to her Hydrocorthiazide which she has been taking for years. She did not get the results were Covid. She was discharged home and continues to get worse therefore her sister called an ambulance. Sister admits that the patient is a little confused. No recent falls. No fevers. EMS did do an Accu-Chek on the patient in route to the [facility] and the patient's glucose was undetectable. She is not a diabetic. She is not on any steroids. No other alleviating, Perceptin or modifying factors - Related Data Home Medications Medication Instructions Recorded Confirmed Aspirin [Adult Low Dose Aspirin EC] 81 mg PO DAILY 06/07/17 03/29/22 Potassium Chloride [K-Tab ER] 10 meq PO DAILY 06/07/17 03/29/22 Ubidecarenone [Co Q-10] 100 mg PO DAILY 06/07/17 03/29/22 hydroCHLOROthiazide 25 mg PO DAILY 06/07/17 03/29/22 lisinopriL 40 mg PO DAILY 06/07/17 03/29/22 Cholecalciferol [Vitamin D3 (125 125 mcg PO DAILY 03/29/22 03/29/22 Mcg = 5000 Iu)] ursodioL [Ursodiol] 300 mg PO BID 03/29/22 03/29/22 Allergies Allergy/AdvReac Type Severity Reaction Status Date / Time amoxicillin Allergy Rash/Hives Verified 03/29/22 16:10 Review of Systems ROS Statement: Those systems with pertinent positive or pertinent negative responses have been documented in the HPI. ROS Other: All systems not noted in ROS Statement are negative. Past Medical History Past Medical History: Cancer, CVA/TIA, Hyperlipidemia, Hypertension, Liver Disease, Osteoarthritis (OA) Additional Past Medical History / Comment(s): HX OF TIA, DOUBLE CURVATURE OF SPINE, CEREBRAL PALSEY WITH WEAKNESS RIGHT SIDE AND OCCASIONAL PROBLEMS WITH BALANCE. , USES WALKER FOR DISTANCE. , HX OF BREAST CANCER WITH [address] RADIATION [place] (1999). History of Any Multi-Drug Resistant Organisms: None Reported Past Surgical History: Appendectomy, Breast Surgery, Orthopedic Surgery, Tonsillectomy Additional Past Surgical History / Comment(s): RIGHT BREAST BX AND LUMPECTOMY, LEFT LEG SURGERY WITH PLATES AND PINS. liver bx Past Anesthesia/Blood Transfusion Reactions: No Reported Reaction Past Psychological History: No Psychological Hx Reported Smoking Status: Never smoker - Past Family History Mother Family Medical History: No Reported History General Exam Limitations: altered mental status General appearance: alert, in no apparent distress Head exam: Present: atraumatic, normocephalic, normal inspection Eye exam: Present: normal appearance, PERRL, EOMI. Absent: scleral icterus, conjunctival injection, periorbital swelling ENT exam: Present: normal exam, mucous membranes dry Neck exam: Present: normal inspection. Absent: tenderness, meningismus, lymphadenopathy Respiratory exam: Present: normal lung sounds bilaterally. Absent: respiratory distress, wheezes, rales, rhonchi, stridor Cardiovascular Exam: Present: regular rate, normal rhythm, normal heart sounds. Absent: systolic murmur, diastolic murmur, rubs, gallop, clicks GI/Abdominal exam: Present: soft, normal bowel sounds. Absent: distended, tenderness, guarding, rebound, rigid Extremities exam: Present: normal inspection, full ROM, normal capillary refill. Absent: tenderness, pedal edema, joint swelling, calf tenderness Back exam: Present: normal inspection Neurological exam: Present: alert, oriented X3, CN II-XII intact Psychiatric exam: Present: normal affect, normal mood Skin exam: Present: warm, dry, intact, normal color. Absent: rash Course Vital Signs 03/29/22 03/29/22 03/29/22 14:53 20:55 21:05 Temperature 98.0 F 98.3 F Pulse Rate 99 Pulse Rate [ 91 91 Pulse Oximetery ] Respiratory 18 18 18 Rate Blood Pressure 100/62 Blood Pressure 137/80 [Left Arm] O2 Sat by Pulse 97 97 Oximetry Medical Decision Making - Medical Decision Making Upon arrival patient is placed into room 1. A thorough history and physical exam was performed. Accu-Chek is performed and the patient does have a glucose greater than 600. She had been given a 250 mL bolus by EMS. She was additi onally given 1500 mL by me. Laboratory studies are conducted. Demonstrates a potassium of 5.8. B-1 114. Creatinine 2.7. Glucose 969. Patient positive for acetone. Covid not detected. She is started on an insulin drip. Will be admitted for new onset DKA. Spoke with Dr. Eugene who agreed to admit the patient. Patient awaiting a bed on the floor in stable condition - Lab Data Result diagrams: 03/30/22 04:14 03/30/22 04:14 Lab Results 03/29/22 03/29/22 03/29/22 Range/Units 15:15 15:15 15:15 WBC 10.8 H (3.8-10.6) k/uL RBC 4.51 (3.80-5.40) m/uL Hgb 14.0 (11.4-16.0) gm/dL Hct 45.2 (34.0-46.0) % MCV 100.3 H (80.0-100.0) fL MCH 31.0 (25.0-35.0) pg MCHC 30.9 L (31.0-37.0) g/dL RDW 13.0 (11.5-15.5) % Plt Count 269 (150-450) k/uL MPV 9.2 Neutrophils % 89 % Lymphocytes % 6 % Monocytes % 4 % Eosinophils % 0 % Basophils % 0 % Neutrophils # 9.6 H (1.3-7.7) k/uL Lymphocytes # 0.7 L (1.0-4.8) k/uL Monocytes # 0.4 (0-1.0) k/uL Eosinophils # 0.0 (0-0.7) k/uL Basophils # 0.0 (0-0.2) k/uL Hypochromasia Moderate PT 10.8 (9.0-12.0) sec INR 1.0 (<1.2) APTT 19.0 L (22.0-30.0) sec VBG pH (7.31-7.41) VBG pCO2 (37-51) mmHg VBG HCO3 (24-28) mmol/L Sodium (137-145) mmol/L Potassium (3.5-5.1) mmol/L Chloride (98-107) mmol/L Carbon Dioxide (22-30) mmol/L Anion Gap mmol/L BUN (7-17) mg/dL Creatinine (0.52-1.04) mg/dL Est GFR (CKD-EPI)AfAm (>60 ml/min/1.73 sqM) Est GFR (CKD-EPI)NonAf (>60 ml/min/1.73 sqM) Glucose (74-99) mg/dL POC Glucose (mg/dL) (75-99) mg/dL POC Glu Corrugated Box Machine Operator ID Lactic Ac Sepsis Rflx Plasma Lactic Acid Rylan (0.7-2.0) mmol/L Calcium (8.4-10.2) mg/dL Total Bilirubin (0.2-1.3) mg/dL AST (14-36) U/L ALT (4-34) U/L Alkaline Phosphatase (38-126) U/L Ammonia (<30) umol/L Troponin I (0.000-0.034) ng/mL Total Protein (6.3-8.2) g/dL Albumin (3.5-5.0) g/dL TSH (0.465-4.680) mIU/L Free T4 (0.78-2.19) ng/dL Urine Color Light Yellow Urine Appearance Clear (Clear) Urine pH 5.0 (5.0-8.0) Ur Specific [place] 1.022 (1.001-1.035) Urine Protein Negative (Negative) Urine Glucose (UA) 4+ H (Negative) Urine Ketones 1+ H (Negative) Urine Blood Small H (Negative) Urine Nitrite Negative (Negative) Urine Bilirubin Negative (Negative) Urine Urobilinogen <2.0 (<2.0) mg/dL Ur Leukocyte Esterase Negative (Negative) Urine RBC <1 (0-5) /hpf Urine WBC 1 (0-5) /hpf Ur Squamous Epith Cells <1 (0-4) /hpf Hyaline Casts 23 H (0-2) /lpf Urine Mucus Rare H (None) /hpf Acetone, Qual (Negative) Coronavirus (PCR) (Not Detectd) 03/29/22 03/29/22 03/29/22 Range/Units 15:15 15:15 15:15 WBC (3.8-10.6) k/uL RBC (3.80-5.40) m/uL Hgb (11.4-16.0) gm/dL Hct (34.0-46.0) % MCV (80.0-100.0) fL MCH (25.0-35.0) pg MCHC (31.0-37.0) g/dL RDW (11.5-15.5) % Plt Count (150-450) k/uL MPV Neutrophils % % Lymphocytes % % Monocytes % % Eosinophils % % Basophils % % Neutrophils # (1.3-7.7) k/uL Lymphocytes # (1.0-4.8) k/uL Monocytes # (0-1.0) k/uL Eosinophils # (0-0.7) k/uL Basophils # (0-0.2) k/uL Hypochromasia PT (9.0-12.0) sec INR (<1.2) APTT (22.0-30.0) sec VBG pH (7.31-7.41) VBG pCO2 (37-51) mmHg VBG HCO3 (24-28) mmol/L Sodium 138 (137-145) mmol/L Potassium 5.8 H (3.5-5.1) mmol/L Chloride 99 (98-107) mmol/L Carbon Dioxide 20 L (22-30) mmol/L Anion Gap 19 mmol/L BUN 114 H* (7-17) mg/dL Creatinine 2.77 H (0.52-1.04) mg/dL Est GFR (CKD-EPI)AfAm 18 (>60 ml/min/1.73 sqM) Est GFR (CKD-EPI)NonAf 15 (>60 ml/min/1.73 sqM) Glucose 969 H* (74-99) mg/dL POC Glucose (mg/dL) (75-99) mg/dL POC Glu Corrugated Box Machine Operator ID Lactic Ac Sepsis Rflx Plasma Lactic Acid Rylan 2.4 H* (0.7-2.0) mmol/L Calcium 9.9 (8.4-10.2) mg/dL Total Bilirubin 0.8 (0.2-1.3) mg/dL AST 21 (14-36) U/L ALT 19 (4-34) U/L Alkaline Phosphatase 106 (38-126) U/L Ammonia <9 (<30) umol/L Troponin I 0.030 (0.000-0.034) ng/mL Total Protein 7.6 (6.3-8.2) g/dL Albumin 4.7 (3.5-5.0) g/dL TSH 6.160 H (0.465-4.680) mIU/L Free T4 1.29 (0.78-2.19) ng/dL Urine Color Urine Appearance (Clear) Urine pH (5.0-8.0) Ur Specific [place] (1.001-1.035) Urine Protein (Negative) Urine Glucose (UA) (Negative) Urine Ketones (Negative) Urine Blood (Negative) Urine Nitrite (Negative) Urine Bilirubin (Negative) Urine Urobilinogen (<2.0) mg/dL Ur Leukocyte Esterase (Negative) Urine RBC (0-5) /hpf Urine WBC (0-5) /hpf Ur Squamous Epith Cells (0-4) /hpf Hyaline Casts (0-2) /lpf Urine Mucus (None) /hpf Acetone, Qual Positive (Negative) Coronavirus (PCR) (Not Detectd) 03/29/22 03/29/22 03/29/22 Range/Units 15:15 15:47 15:51 WBC (3.8-10.6) k/uL RBC (3.80-5.40) m/uL Hgb (11.4-16.0) gm/dL Hct (34.0-46.0) % MCV (80.0-100.0) fL MCH (25.0-35.0) pg MCHC (31.0-37.0) g/dL RDW (11.5-15.5) % Plt Count (150-450) k/uL MPV Neutrophils % % Lymphocytes % % Monocytes % % Eosinophils % % Basophils % % Neutrophils # (1.3-7.7) k/uL Lymphocytes # (1.0-4.8) k/uL Monocytes # (0-1.0) k/uL Eosinophils # (0-0.7) k/uL Basophils # (0-0.2) k/uL Hypochromasia PT (9.0-12.0) sec INR (<1.2) APTT (22.0-30.0) sec VBG pH 7.35 (7.31-7.41) VBG pCO2 41 (37-51) mmHg VBG HCO3 23 L (24-28) mmol/L Sodium (137-145) mmol/L Potassium (3.5-5.1) mmol/L Chloride (98-107) mmol/L Carbon Dioxide (22-30) mmol/L Anion Gap mmol/L BUN (7-17) mg/dL Creatinine (0.52-1.04) mg/dL Est GFR (CKD-EPI)AfAm (>60 ml/min/1.73 sqM) Est GFR (CKD-EPI)NonAf (>60 ml/min/1.73 sqM) Glucose (74-99) mg/dL POC Glucose (mg/dL) >600 H (75-99) mg/dL POC Glu Corrugated Box Machine Operator ID Deepika Sharif Lactic Ac Sepsis Rflx Plasma Lactic Acid Rylan (0.7-2.0) mmol/L Calcium (8.4-10.2) mg/dL Total Bilirubin (0.2-1.3) mg/dL AST (14-36) U/L ALT (4-34) U/L Alkaline Phosphatase (38-126) U/L Ammonia (<30) umol/L Troponin I (0.000-0.034) ng/mL Total Protein (6.3-8.2) g/dL Albumin (3.5-5.0) g/dL TSH (0.465-4.680) mIU/L Free T4 (0.78-2.19) ng/dL Urine Color Urine Appearance (Clear) Urine pH (5.0-8.0) Ur Specific [place] (1.001-1.035) Urine Protein (Negative) Urine Glucose (UA) (Negative) Urine Ketones (Negative) Urine Blood (Negative) Urine Nitrite (Negative) Urine Bilirubin (Negative) Urine Urobilinogen (<2.0) mg/dL Ur Leukocyte Esterase (Negative) Urine RBC (0-5) /hpf Urine WBC (0-5) /hpf Ur Squamous Epith Cells (0-4) /hpf Hyaline Casts (0-2) /lpf Urine Mucus (None) /hpf Acetone, Qual (Negative) Coronavirus (PCR) Not Detected (Not Detectd) 03/29/22 Range/Units 16:06 WBC (3.8-10.6) k/uL RBC (3.80-5.40) m/uL Hgb (11.4-16.0) gm/dL Hct (34.0-46.0) % MCV (80.0-100.0) fL MCH (25.0-35.0) pg MCHC (31.0-37.0) g/dL RDW (11.5-15.5) % Plt Count (150-450) k/uL MPV Neutrophils % % Lymphocytes % % Monocytes % % Eosinophils % % Basophils % % Neutrophils # (1.3-7.7) k/uL Lymphocytes # (1.0-4.8) k/uL Monocytes # (0-1.0) k/uL Eosinophils # (0-0.7) k/uL Basophils # (0-0.2) k/uL Hypochromasia PT (9.0-12.0) sec INR (<1.2) APTT (22.0-30.0) sec VBG pH (7.31-7.41) VBG pCO2 (37-51) mmHg VBG HCO3 (24-28) mmol/L Sodium (137-145) mmol/L Potassium (3.5-5.1) mmol/L Chloride (98-107) mmol/L Carbon Dioxide (22-30) mmol/L Anion Gap mmol/L BUN (7-17) mg/dL Creatinine (0.52-1.04) mg/dL Est GFR (CKD-EPI)AfAm (>60 ml/min/1.73 sqM) Est GFR (CKD-EPI)NonAf (>60 ml/min/1.73 sqM) Glucose (74-99) mg/dL POC Glucose (mg/dL) (75-99) mg/dL POC Glu Corrugated Box Machine Operator ID Lactic Ac Sepsis Rflx Y Plasma Lactic Acid Rylan (0.7-2.0) mmol/L Calcium (8.4-10.2) mg/dL Total Bilirubin (0.2-1.3) mg/dL AST (14-36) U/L ALT (4-34) U/L Alkaline Phosphatase (38-126) U/L Ammonia (<30) umol/L Troponin I (0.000-0.034) ng/mL Total Protein (6.3-8.2) g/dL Albumin (3.5-5.0) g/dL TSH (0.465-4.680) mIU/L Free T4 (0.78-2.19) ng/dL Urine Color Urine Appearance (Clear) Urine pH (5.0-8.0) Ur Specific [place] (1.001-1.035) Urine Protein (Negative) Urine Glucose (UA) (Negative) Urine Ketones (Negative) Urine Blood (Negative) Urine Nitrite (Negative) Urine Bilirubin (Negative) Urine Urobilinogen (<2.0) mg/dL Ur Leukocyte Esterase (Negative) Urine RBC (0-5) /hpf Urine WBC (0-5) /hpf Ur Squamous Epith Cells (0-4) /hpf Hyaline Casts (0-2) /lpf Urine Mucus (None) /hpf Acetone, Qual (Negative) Coronavirus (PCR) (Not Detectd) - EKG Data EKG Comments: EKG demonstrates a sinus rhythm with a rate of 96. DC interval 136. QRS 81. QTC of 395. Some baseline artifact. No acute ST segment elevations or depressions Critical Care Time Critical Care Time: Yes Critical Care Time: 35 minutes Disposition Clinical Impression: DKA (diabetic ketoacidosis) Disposition[facility] Condition: Serious Is patient prescribed a controlled substance at d/c from ED?: No Time of Disposition: 17:50 Decision to Admit Reason: Admit from EC Decision Date: 03/29/22 Decision Time: 17:50
[2022-03-29] MEDS ORDERED: D5-0.45% NACL WITH KCL 20MEQ/L 1,000 ML IV SCH ×2 (17:45→23:00)
[2022-03-29] MEDS ORDERED: INSULIN REGULAR 100 UNIT in SODIUM CHLORIDE 0.9% 100 ML IV SCH (17:45)
[2022-03-29] MEDS ORDERED: SODIUM CHLORIDE 0.9% 1,000 ML IV STA (18:11)
[2022-03-29 19:08] LABS: Glucose,Whole Blood >600 mg/dL (75-99)
--- NOTE | 2022-03-29 19:20 | US ---
EXAMINATION TYPE: US kidneys/renal and bladder DATE OF EXAM: 03/29/2022 COMPARISON: NONE CLINICAL HISTORY: LAVONNE. LAVONNE, patient unable to void; RN inserting catheter after ultrasound exam. EXAM MEASUREMENTS: Right Kidney: 8.2 x 5.0 x 4.8 cm Left Kidney: 8.9 x 5.5 x 4.6 cm Right Kidney: Limited visualization, no hydronephrosis seen Left Kidney: Limited visualization, no hydronephrosis seen Bladder: Anechoic Bilateral Jets seen: no There is no evidence for hydronephrosis at this point in time. No nephrolithiasis is seen. No yaneli s are identified. The urinary bladder is anechoic. Bilateral ureteral jets are seen. Limited exam due to patient immobility IMPRESSION: There is bilateral renal cortical thinning. Kidneys are relatively small. This is consistent with atr ophy. No evidence of obstruction. No evidence of bladder mass.
[2022-03-29 19:45] LABS: Appearance,Urine Clear (Clear); Bilirubin,Urine Negative (Negative); Blood,Urine Small (Negative); Color,Urine Light Yellow; Glucose,Urine (UA) 4+ (Negative); Hyaline Casts,Urine 23 /lpf (0-2); Ketones,Urine 1+ (Negative); Leukocyte Esterase,Urine Negative (Negative); Mucus,Urine Rare /hpf; Nitrite,Urine Negative (Negative); Protein,Urine Negative (Negative); RBC,Urine <1 /hpf (0-5); Specific Gravity,Urine 1.022 (1.001-1.035); Squamous Epithelial Cell,Urine <1 /hpf (0-4); Urobilinogen,Urine <2.0 mg/dL (<2.0); WBC,Urine 1 /hpf (0-5)
[2022-03-29 20:23] LABS: Phosphorus 4.1 mg/dL (2.5-4.5); Potassium 4.7 mmol/L (3.5-5.1)
[2022-03-29 20:32] LABS: Glucose,Whole Blood 560 mg/dL (75-99)
[2022-03-29 21:31] LABS: Glucose,Whole Blood 396 mg/dL (75-99)
[2022-03-29] MEDS: ursodioL 300 MG CAP PO SCH (22:09)
[2022-03-29 22:37] LABS: Glucose,Whole Blood 397 mg/dL (75-99)
[2022-03-29] MEDS: MELATONIN 5 MG TABLET PO PRN (22:41)
[2022-03-29 23:38] LABS: Glucose,Whole Blood 314 mg/dL (75-99)
[2022-03-30 00:29] LABS: Glucose,Whole Blood 157 mg/dL (75-99)
[2022-03-30 01:17] LABS: Potassium 3.8 mmol/L (3.5-5.1)
[2022-03-30 01:32] LABS: Glucose,Whole Blood 113 mg/dL (75-99)
[2022-03-30 02:28] LABS: Glucose,Whole Blood 81 mg/dL (75-99)
[2022-03-30 03:05] LABS: Glucose,Whole Blood 75 mg/dL (75-99)
[2022-03-30 04:54] LABS: Basophils # (A) 0.1 k/uL (0-0.2); Basophils % (A) 0 %; Eosinophils % (A) 0 %; HCT 36.6 % (34.0-46.0); HGB 11.6 gm/dL (11.4-16.0); Lymphocytes # (A) 1.4 k/uL (1.0-4.8); Lymphocytes % (A) 12 %; MCH 30.1 pg (25.0-35.0); MCHC 31.5 g/dL (31.0-37.0); Mean Platelet Volume 8.2; Monocytes # (A) 0.5 k/uL (0-1.0); Monocytes % (A) 5 %; Neutrophils # (A) 9.7 k/uL (1.3-7.7); Neutrophils % (A) 82 %; Platelet Count 198 k/uL (150-450); RBC 3.85 m/uL (3.80-5.40); RDW 12.6 % (11.5-15.5); WBC 11.8 k/uL (3.8-10.6)
[2022-03-30 04:59] LABS: MCV 95.3 fL (80.0-100.0)
[2022-03-30 05:17] LABS: Albumin 3.4 g/dL (3.5-5.0); Calcium 8.6 mg/dL (8.4-10.2); Potassium 3.9 mmol/L (3.5-5.1); Total Bilirubin 0.6 mg/dL (0.2-1.3); Total Protein 5.9 g/dL (6.3-8.2)
[2022-03-30 06:19] LABS: Glucose,Whole Blood 181 mg/dL (75-99)
[2022-03-30] MEDS: INSULIN ASPART (NovoLOG) 100 UNIT/ML VIAL SQ SCH ×4 (06:53→21:26)
[2022-03-30] MEDS: LEVOTHYROXINE 25 MCG TAB PO SCH (06:53)
[2022-03-30] MEDS ORDERED: INSULIN ASPART (NovoLOG) 100 UNIT/ML VIAL SQ SCH (07:30)
[2022-03-30] MEDS: ASPIRIN 81 MG PO SCH (09:54)
[2022-03-30] MEDS: ursodioL 300 MG CAP PO SCH ×2 (09:54→21:25)
[2022-03-30] MEDS: CHOLECALCIFEROL 125 MCG (5000 IU) TABLET PO SCH (09:54)
--- NOTE | 2022-03-30 10:11 | P.HPIM ---
History of Present Illness H&P Date: 03/29/22 Cassy Elise, is an 82-year-old female who presented to [facility] emergency room with a chief complaint of severe weakness She was evaluated in the emergency room vital examination on presentation revealed a temperature of 98.0 pulse 99 respiration 18 blood pressure 100/62 pulse ox 97% on room air Laboratory data revealed a white blood count of 10.8 hemoglobin 14.0 platelet count 269 sodium 138 potassium 5.8 chloride 99 CO2 20 BUN 114 creatinine 2.77 Testing in the emergency room revealed computed tomography scan of the head and neck without contrast was done in the emergency room and revealed no acute traumatic bony injury of the cervical spine, no acute intracranial hemorrhage mass effect or midline shift, incidental finding was partially opacified mastoid air cells. Patient was admitted to medical floor for further evaluation and treatment Past Medical History Past Medical History: Cancer, CVA/TIA, Hyperlipidemia, Hypertension, Liver Disease, Osteoarthritis (OA) Additional Past Medical History / Comment(s): HX OF TIA, DOUBLE CURVATURE OF SPINE, CEREBRAL PALSEY WITH WEAKNESS RIGHT SIDE AND OCCASIONAL PROBLEMS WITH BALANCE. , USES WALKER FOR DISTANCE. , HX OF BREAST CANCER WITH [address] RADIATION [place] (1999). History of Any Multi-Drug Resistant Organisms: None Reported Past Surgical History: Appendectomy, Breast Surgery, Orthopedic Surgery, Tonsillectomy Additional Past Surgical History / Comment(s): RIGHT BREAST BX AND LUMPECTOMY, LEFT LEG SURGERY WITH PLATES AND PINS. liver bx Past Anesthesia/Blood Transfusion Reactions: No Reported Reaction Past Psychological History: No Psychological Hx Reported Smoking Status: Never smoker - Past Family History Mother Family Medical History: No Reported History Medications and Allergies Home Medications Medication Instructions Recorded Confirmed Type Aspirin [Adult Low Dose Aspirin EC] 81 mg PO DAILY 06/07/17 03/29/22 History Potassium Chloride [K-Tab ER] 10 meq PO DAILY 06/07/17 03/29/22 History Ubidecarenone [Co Q-10] 100 mg PO DAILY 06/07/17 03/29/22 History hydroCHLOROthiazide 25 mg PO DAILY 06/07/17 03/29/22 History lisinopriL 40 mg PO DAILY 06/07/17 03/29/22 History Cholecalciferol [Vitamin D3 (125 125 mcg PO DAILY 03/29/22 03/29/22 History Mcg = 5000 Iu)] ursodioL [Ursodiol] 300 mg PO BID 03/29/22 03/29/22 History Allergies Allergy/AdvReac Type Severity Reaction Status Date / Time amoxicillin Allergy Rash/Hives Verified 03/29/22 16:10 Physical Exam Vitals: Vital Signs Temp Pulse Resp BP Pulse Ox 03/29/22 14:53 98.0 F 99 18 100/62 97 Intake and Output 03/29/22 03/29/22 03/29/22 06:59 14:59 22:59 Other: Weight 49.895 kg In general patient is alert and oriented x 3 in no distress HEENT head normocephalic and atraumatic Neck is supple no JVD no goiter no lymphadenopathy no carotid bruit Chest examination is clear to auscultation no crackles no wheezing Cardiac exam reveals regular heart sounds S1 and S2 no gallops no murmurs Abdomen is soft nontender no organomegaly with normal bowel sounds Extremity exam reveals no edema no cyanosis or clubbing Neurological examination reveals no gross focal deficits Results CBC & Chem 7: 03/30/22 04:14 03/30/22 04:14 Labs: Abnormal Lab Results - Last 24 Hours (Table) 03/29/22 03/29/22 03/29/22 Range/Units 15:15 15:15 15:15 WBC 10.8 H (3.8-10.6) k/uL MCV 100.3 H (80.0-100.0) fL MCHC 30.9 L (31.0-37.0) g/dL Neutrophils # 9.6 H (1.3-7.7) k/uL Lymphocytes # 0.7 L (1.0-4.8) k/uL APTT 19.0 L (22.0-30.0) sec VBG HCO3 (24-28) mmol/L Potassium 5.8 H (3.5-5.1) mmol/L Carbon Dioxide 20 L (22-30) mmol/L BUN 114 H* (7-17) mg/dL Creatinine 2.77 H (0.52-1.04) mg/dL Glucose 969 H* (74-99) mg/dL POC Glucose (mg/dL) (75-99) mg/dL Plasma Lactic Acid Rylan (0.7-2.0) mmol/L TSH 6.160 H (0.465-4.680) mIU/L 03/29/22 03/29/22 03/29/22 Range/Units 15:15 15:15 15:51 WBC (3.8-10.6) k/uL MCV (80.0-100.0) fL MCHC (31.0-37.0) g/dL Neutrophils # (1.3-7.7) k/uL Lymphocytes # (1.0-4.8) k/uL APTT (22.0-30.0) sec VBG HCO3 23 L (24-28) mmol/L Potassium (3.5-5.1) mmol/L Carbon Dioxide (22-30) mmol/L BUN (7-17) mg/dL Creatinine (0.52-1.04) mg/dL Glucose (74-99) mg/dL POC Glucose (mg/dL) >600 H (75-99) mg/dL Plasma Lactic Acid Rylan 2.4 H* (0.7-2.0) mmol/L TSH (0.465-4.680) mIU/L Assessment and Plan Plan: Severe hyperglycemia, no previous known history of diabetes mellitus Acute kidney injury, with elevated BUN at 114 and creatinine at 2.77 Hyperkalemia with potassium at 5.8 on presentation Evidence of hypothyroidism TSH 6.16 At this time patient will be admitted to medical floor with telemetry Start IV fluid, start insulin drip Obtain kidney ultrasound Consult nephrology Monitor labs closely including kidney function and electrolytes Start patient on Synthroid 25 g daily
--- NOTE | 2022-03-30 11:05 | P.NPCON ---
History of Present Illness - Reason for Consult acute renal failure - History of Present Illness Reason for consultation: Acute kidney injury History of present illness: Patient is a 82-year-old female seen in renal consultation for acute kidney injury. Patient's creatinine on admission was 2.77 and is down to 1.21 today. Patient came to the hospital on 03/29/2022 with generalized weakness and altered mental status. From the records it appears that she was taken to an urgent care last week and tested for Covid. She tested negative for Covid this admission. She was noted to be in DKA with blood sugar at 969 on admission. Insulin drip has been discontinued. Blood sugar this morning was 191. She has been receiving IV fluids. States her appetite has been decreased. She was also nauseous prior to admission but is better now. Currently she is on normal saline at 100 mL an hour. She has a Hebert catheter and is nonoliguric. Hemodynamically stable. No fever or chills. She denies any cough. Denies any hematuria or dysuria. Lisinopril and thiazide diuretic are both currently held. She denies use of nonsteroidals. She denies personal or family history of kidney disease. Vital signs are stable. General: Awake. No acute distress. HEENT: Head exam is unremarkable. LUNGS: Breath sounds decreased. HEART: Rate and Rhythm are regular. ABDOMEN: Soft, no distention. EXTREMITITES: No edema. Past Medical History Past Medical History: Cancer, CVA/TIA, Hyperlipidemia, Hypertension, Liver Disease, Osteoarthritis (OA) Additional Past Medical History / Comment(s): HX OF TIA, DOUBLE CURVATURE OF SPINE, CEREBRAL PALSEY WITH WEAKNESS RIGHT SIDE AND OCCASIONAL PROBLEMS WITH BALANCE. , USES WALKER FOR DISTANCE. , HX OF BREAST CANCER WITH 33 RADIATION [place] (1999). History of Any Multi-Drug Resistant Organisms: None Reported Past Surgical History: Appendectomy, Breast Surgery, Orthopedic Surgery, Tonsillectomy Additional Past Surgical History / Comment(s): RIGHT BREAST BX AND LUMPECTOMY, LEFT LEG SURGERY WITH PLATES AND PINS. liver bx Past Anesthesia/Blood Transfusion Reactions: No Reported Reaction Past Psychological History: No Psychological Hx Reported Smoking Status: Never smoker - Past Family History Mother Family Medical History: No Reported History Medications and Allergies Home Medications Medication Instructions Recorded Confirmed Type Aspirin [Adult Low Dose Aspirin EC] 81 mg PO DAILY 06/07/17 03/29/22 History Potassium Chloride [K-Tab ER] 10 meq PO DAILY 06/07/17 03/29/22 History Ubidecarenone [Co Q-10] 100 mg PO DAILY 06/07/17 03/29/22 History hydroCHLOROthiazide 25 mg PO DAILY 06/07/17 03/29/22 History lisinopriL 40 mg PO DAILY 06/07/17 03/29/22 History Cholecalciferol [Vitamin D3 (125 125 mcg PO DAILY 03/29/22 03/29/22 History Mcg = 5000 Iu)] ursodioL [Ursodiol] 300 mg PO BID 03/29/22 03/29/22 History Allergies Allergy/AdvReac Type Severity Reaction Status Date / Time amoxicillin Allergy Rash/Hives Verified 03/29/22 16:10 Physical Exam Vitals: Vital Signs Temp Pulse Pulse Resp BP BP Pulse Ox 03/30/22 04:00 97.6 F 82 18 108/63 98 03/30/22 01:53 18 03/29/22 23:40 97.8 F 85 18 118/67 95 03/29/22 21:05 91 18 03/29/22 20:55 98.3 F 91 18 137/80 97 03/29/22 14:53 98.0 F 99 18 100/62 97 Intake and Output 03/29/22 03/30/22 03/30/22 22:59 06:59 14:59 Intake Total 22.465 25.788 Output Total 400 450 Balance -377.535 -424.212 Intake: Intake, IV Titration 22.465 25.788 Amount Insulin Regular 100 unit 22.465 25.788 In Sodium Chloride 0.9% 100 ml @ 0.1 UNITS/KG/HR 5.039 mls/hr IV .Q20H3M [facility] Rx#:[id number] Output: Urine 400 450 Other: Voiding Method Indwelling Catheter Indwelling Catheter Weight 49.895 kg Results - Lab Results Most recent lab results Calcium 8.6 mg/dL (8.4-10.2) 03/30/22 04:14 Phosphorus 2.9 mg/dL (2.5-4.5) 03/30/22 00:30 03/30/22 04:14 03/30/22 04:14 Assessment and Plan Plan: Assessment: 1. Acute kidney injury mostly prerenal secondary to hypovolemia from DKA. Creatinine was 2.7 on admission and is 1.2 today. Creatinine in July 2021 was 0.5. No proteinuria on UA. Kidneys are small in size without hydronephrosis. 2. DKA status post insulin drip. Improved. 3. Metabolic acidosis secondary to lactic acidosis and DKA. 4. Hyperkalemia secondary to hyperglycemia. Improved. Plan: Decrease rate of normal saline to 75 mL an hour. Encouraged oral intake. Blood sugar control. Avoid nephrotoxins. Continue to monitor renal function and urine output. Plan to DC Hebert catheter tomorrow. Thank you for the consultation. I will continue to follow the patient with you during her hospital stay.
[2022-03-30 11:43] LABS: Glucose,Whole Blood 258 mg/dL (75-99)
--- NOTE | 2022-03-30 12:12 | CDI ---
Documentation Clarification Form Date: 03/30/2022 11:57:35 AM From: Alice James RN CCDS Admit Date: 03/29/2022 05:45:00 PM Patient Name: Cassy Elise Visit Number: [id number] Discharge Date: ATTENTION: The Clinical Documentation Specialists (CDI) and [facility] Coding Staff appreciate your assistance in clarifying documentation. Please respond to the clarification below the line at the bottom and electronically sign. The CDI & [facility] Coding staff will review the response and follow-up if needed. Please note: Queries are made part of the Legal Health Record. If you have any questions, please contact the author of this message via ITS. Dr. Kalli Duran Your patient has the documented symptom of Altered Mental Status 03/29, H&P. Additional clarification regarding the etiology/cause of this symptom is requested. History/Risk Factors: 82-year-old female presents to the ED with severe weakness. Medical History: Cancer, CVA/TIA, HTN, HLD and Liver disease. H&P, 03/29. Clinical Indicators: Blood Glucose: Labs: 03/29 969; 629. 03/30 209; 191 Acetone, Qual: 03/29 Positive Labs: 03/29 K 5.8; BUN 114; Na 138; Cr 2.77; Lactic acid 2.4; TSH 6.160 CT Brain : 03/29 No acute intracranial hemorrhage, mass effect, or midline shift is seen. Treatment: 03/29 03/30 Insulin Human Regular 1000 unit in Sodium Chloride 101mls@ 5.039 mls/hr IV Q20H3M; 03/29 03/30 D5%-1/2ns-Kcl 20Meq/Charisse 1,000 mls @ 150mls/hr; 03/29 0.9ns 1,000ml bolus x 3. Please clarify the etiology of the symptom of Altered Mental Status: [ x ] Metabolic Encephalopathy due to hyperglycemia. [ ] Metabolic Encephalopathy (specify cause): [ ] Other condition (please specify) [ ] Unable to determine (Template Last Revised: November 2020) MTDD
[2022-03-30 12:54] VITALS: BMI 21.4
[2022-03-30] MEDS: SODIUM CHLORIDE 0.9% 1,000 ML IV SCH (12:59)
[2022-03-30 16:36] LABS: Glucose,Whole Blood 279 mg/dL (75-99)
[2022-03-30 20:20] LABS: Glucose,Whole Blood 276 mg/dL (75-99)
[2022-03-30] MEDS: MELATONIN 5 MG TABLET PO PRN (21:32)
[2022-03-31] MEDS: SODIUM CHLORIDE 0.9% 1,000 ML IV SCH ×2 (00:12→20:42)
[2022-03-31 05:56] LABS: Glucose,Whole Blood 196 mg/dL (75-99)
[2022-03-31] MEDS: LEVOTHYROXINE 25 MCG TAB PO SCH (06:54)
[2022-03-31] MEDS: INSULIN ASPART (NovoLOG) 100 UNIT/ML VIAL SQ SCH ×4 (06:54→20:36)
[2022-03-31] MEDS: CHOLECALCIFEROL 125 MCG (5000 IU) TABLET PO SCH (07:42)
[2022-03-31] MEDS: ursodioL 300 MG CAP PO SCH ×2 (07:42→18:47)
[2022-03-31] MEDS: ASPIRIN 81 MG PO SCH (07:42)
[2022-03-31 09:34] LABS: Basophils # (A) 0.1 k/uL (0-0.2); Basophils % (A) 1 %; Eosinophils % (A) 0 %; HCT 39.2 % (34.0-46.0); HGB 12.1 gm/dL (11.4-16.0); Lymphocytes # (A) 0.5 k/uL (1.0-4.8); Lymphocytes % (A) 7 %; MCH 29.9 pg (25.0-35.0); MCHC 30.8 g/dL (31.0-37.0); MCV 97.1 fL (80.0-100.0); Mean Platelet Volume 8.7; Monocytes # (A) 0.2 k/uL (0-1.0); Monocytes % (A) 3 %; Neutrophils # (A) 6.9 k/uL (1.3-7.7); Neutrophils % (A) 89 %; Platelet Count 135 k/uL (150-450); RBC 4.04 m/uL (3.80-5.40); RDW 12.5 % (11.5-15.5); WBC 7.7 k/uL (3.8-10.6)
[2022-03-31 10:07] LABS: ALT 20 U/L (4-34); AST 30 U/L (14-36); African American GFR (CKD) >90 (>60 ml/min/1.73 sqM); Albumin 3.2 g/dL (3.5-5.0); Alkaline Phosphatase 74 U/L (38-126); Anion Gap 8 mmol/L; Blood Urea Nitrogen 26 mg/dL (7-17); Calcium 8.2 mg/dL (8.4-10.2); Carbon Dioxide 19 mmol/L (22-30); Chloride 112 mmol/L (98-107); Glucose 324 mg/dL (74-99); Magnesium 1.9 mg/dL (1.6-2.3); Non-African American GFR(CKD) 79 (>60 ml/min/1.73 sqM); Sodium 139 mmol/L (137-145); Total Bilirubin 0.8 mg/dL (0.2-1.3); Total Protein 5.8 g/dL (6.3-8.2)
--- NOTE | 2022-03-31 10:24 | P.PN ---
Subjective Patient is seen in follow-up for acute kidney injury. GFR back to baseline. Oral intake good. Has been voiding. She did have vomiting after dinner last night. Vital signs are stable. General: Awake. No acute distress. HEENT: Head exam is unremarkable. LUNGS: Breath sounds decreased. HEART: Rate and Rhythm are regular. ABDOMEN: Soft, no distention. EXTREMITITES: No edema. Objective - Vital Signs Vital signs: Vital Signs Temp 98.3 F 03/31/22 04:20 Pulse 87 03/31/22 04:20 Resp 18 03/31/22 04:20 BP 129/72 03/31/22 04:20 Pulse Ox 95 03/31/22 07:59 FiO2 Intake & Output 03/30/22 03/31/22 03/31/22 18:59 06:59 18:59 Intake Total 120 Output Total 1400 Balance -1400 120 Weight 49.895 kg Intake: Oral 120 Output: Urine 1400 Other: Voiding Method Indwelling Catheter Indwelling Catheter - Labs CBC & Chem 7: 03/31/22 08:30 03/31/22 08:30 Labs: Abnormal Lab Results - Last 24 Hours (Table) 03/30/22 03/30/22 03/30/22 Range/Units 11:42 16:35 20:18 MCHC (31.0-37.0) g/dL Plt Count (150-450) k/uL Lymphocytes # (1.0-4.8) k/uL Chloride (98-107) mmol/L Carbon Dioxide (22-30) mmol/L BUN (7-17) mg/dL Glucose (74-99) mg/dL POC Glucose (mg/dL) 258 H 279 H 276 H (75-99) mg/dL Calcium (8.4-10.2) mg/dL Total Protein (6.3-8.2) g/dL Albumin (3.5-5.0) g/dL 03/31/22 03/31/22 03/31/22 Range/Units 05:53 08:30 08:30 MCHC 30.8 L (31.0-37.0) g/dL Plt Count 135 L (150-450) k/uL Lymphocytes # 0.5 L (1.0-4.8) k/uL Chloride 112 H (98-107) mmol/L Carbon Dioxide 19 L (22-30) mmol/L BUN 26 H (7-17) mg/dL Glucose 324 H (74-99) mg/dL POC Glucose (mg/dL) 196 H (75-99) mg/dL Calcium 8.2 L (8.4-10.2) mg/dL Total Protein 5.8 L (6.3-8.2) g/dL Albumin 3.2 L (3.5-5.0) g/dL Assessment and Plan Plan: Assessment: 1. Acute kidney injury mostly prerenal secondary to hypovolemia from DKA. Creatinine was 2.7 on admission and is 0.72 today. Creatinine in July 2021 was 0.5. No proteinuria on UA. Kidneys are small in size without hydronephrosis. 2. DKA status post insulin drip. Improved. 3. Metabolic acidosis secondary to IV fluids. 4. Hyperkalemia secondary to hyperglycemia. Improved. Plan: Decrease rate of normal saline to 50 mL an hour. Encouraged oral intake. Blood sugar control. Avoid nephrotoxins. Continue to monitor renal function and urine output. DC Hebert catheter. Monitor for urinary retention.
[2022-03-31 11:39] LABS: Glucose,Whole Blood 308 mg/dL (75-99)
--- NOTE | 2022-03-31 11:49 | P.PN ---
Subjective Progress Note Date: 03/31/22 Cassy Elise, is an 82-year-old female who presented to [facility] emergency room with a chief complaint of severe weakness She was evaluated in the emergency room vital examination on presentation revealed a temperature of 98.0 pulse 99 respiration 18 blood pressure 100/62 pulse ox 97% on room air Laboratory data revealed a white blood count of 10.8 hemoglobin 14.0 platelet count 269 sodium 138 potassium 5.8 chloride 99 CO2 20 BUN 114 creatinine 2.77 Testing in the emergency room revealed computed tomography scan of the head and neck without contrast was done in the emergency room and revealed no acute traumatic bony injury of the cervical spine, no acute intracranial hemorrhage m ass effect or midline shift, incidental finding was partially opacified mastoid air cells. Patient was admitted to medical floor for further evaluation and treatment On 03/31/2023 2 patient is alert and oriented 3. Patient reports that she feels much improved. Creatinine has normalized 0.7 to bun 26. Hemoglobin A1c 13.4 patient will be started on long-acting insulin 10 units was in teenage iding scale coverage at this time. At this time patient denies chest pain or shortness of breath. Patient denies nausea vomiting or diarrhea. Patient denies any urinary burning or frequency. Objective - Vital Signs Vital signs: Vital Signs Temp 97.6 F 03/31/22 08:00 Pulse 104 H 03/31/22 08:00 Resp 18 03/31/22 08:00 BP 141/67 03/31/22 08:00 Pulse Ox 93 L 03/31/22 08:00 FiO2 Intake & Output 03/30/22 03/31/22 03/31/22 18:59 06:59 18:59 Intake Total 120 Output Total 1400 Balance -1400 120 Weight 49.895 kg Intake: Oral 120 Output: Urine 1400 Other: Voiding Method Indwelling Catheter Indwelling Catheter Indwelling Catheter - Exam In general patient is alert and oriented x 3 in no distress HEENT head normocephalic and atraumatic Neck is supple no JVD no goiter no lymphadenopathy no carotid bruit Chest examination is clear to auscultation no crackles no wheezing Cardiac exam reveals regular heart sounds S1 and S2 no gallops no murmurs Abdomen is soft nontender no organomegaly with normal bowel sounds Extremity exam reveals no edema no cyanosis or clubbing Neurological examination reveals no gross focal deficits - Labs CBC & Chem 7: 03/31/22 08:30 03/31/22 08:30 Labs: Abnormal Lab Results - Last 24 Hours (Table) 03/30/22 03/30/22 03/31/22 Range/Units 16:35 20:18 05:53 MCHC (31.0-37.0) g/dL Plt Count (150-450) k/uL Lymphocytes # (1.0-4.8) k/uL Chloride (98-107) mmol/L Carbon Dioxide (22-30) mmol/L BUN (7-17) mg/dL Glucose (74-99) mg/dL POC Glucose (mg/dL) 279 H 276 H 196 H (75-99) mg/dL Calcium (8.4-10.2) mg/dL Total Protein (6.3-8.2) g/dL Albumin (3.5-5.0) g/dL 03/31/22 03/31/22 03/31/22 Range/Units 08:30 08:30 11:37 MCHC 30.8 L (31.0-37.0) g/dL Plt Count 135 L (150-450) k/uL Lymphocytes # 0.5 L (1.0-4.8) k/uL Chloride 112 H (98-107) mmol/L Carbon Dioxide 19 L (22-30) mmol/L BUN 26 H (7-17) mg/dL Glucose 324 H (74-99) mg/dL POC Glucose (mg/dL) 308 H (75-99) mg/dL Calcium 8.2 L (8.4-10.2) mg/dL Total Protein 5.8 L (6.3-8.2) g/dL Albumin 3.2 L (3.5-5.0) g/dL Assessment and Plan Plan: Severe hyperglycemia, no previous known history of diabetes mellitus. Hemoglobin A1c 13.4. Patient will be started on 10 units long-acting plus sliding scale coverage Acute kidney injury, with elevated BUN at 114 and creatinine at 2.77. Resolved Hyperkalemia with potassium at 5.8 on presentation. Resolved Evidence of hypothyroidism TSH 6.16. Patient started on Synthroid DVT prophylaxis Lovenox. GI prophylaxis Pepcid Hemoglobin A1c 13.4. maintained on Lantus 10 units plus sliding scale coverage Nephrology services are following Kidney ultrasound negative for hydronephrosis PT OT and sr. social media & mobile manager are following Patient will likely need rehab upon discharge
[2022-03-31 16:36] LABS: Glucose,Whole Blood 267 mg/dL (75-99)
[2022-03-31 20:31] LABS: Glucose,Whole Blood 314 mg/dL (75-99)
[2022-03-31] MEDS: MELATONIN 5 MG TABLET PO PRN (20:36)
[2022-03-31] MEDS ORDERED: INSULIN DETEMIR (LEVEMIR) 100 UNIT/ML SYR SQ SCH (21:00)
[2022-04-01 05:33] LABS: Glucose,Whole Blood 75 mg/dL (75-99)
[2022-04-01] MEDS: INSULIN ASPART (NovoLOG) 100 UNIT/ML VIAL SQ SCH ×3 (06:08→17:17)
[2022-04-01] MEDS: LEVOTHYROXINE 25 MCG TAB PO SCH (06:12)
[2022-04-01 06:15] LABS: Glucose,Whole Blood 71 mg/dL (75-99)
[2022-04-01] MEDS: CHOLECALCIFEROL 125 MCG (5000 IU) TABLET PO SCH (09:30)
[2022-04-01] MEDS: FAMOTIDINE 20 MG TAB PO SCH (09:30)
[2022-04-01] MEDS: ASPIRIN 81 MG PO SCH (09:30)
[2022-04-01] MEDS: ENOXAPARIN 40 MG/0.4 ML SYRINGE SQ SCH (09:30)
[2022-04-01] MEDS: ursodioL 300 MG CAP PO SCH ×2 (09:31→20:31)
--- NOTE | 2022-04-01 09:59 | P.PN ---
Subjective Patient is seen in follow-up for acute kidney injury. GFR back to baseline. Creatinine 0.72 yesterday. Oral intake good. Has been voiding. Hemo dynamically stable. No active complaints. Vital signs are stable. General: Awake. No acute distress. HEENT: Head exam is unremarkable. LUNGS: Breath sounds decreased. HEART: Rate and Rhythm are regular. ABDOMEN: Soft, no distention. EXTREMITITES: No edema. Objective - Vital Signs Vital signs: Vital Signs Temp 97.5 F L 04/01/22 09:35 Pulse 91 04/01/22 09:35 Resp 16 04/01/22 09:35 BP 133/78 04/01/22 09:35 Pulse Ox 96 04/01/22 09:35 FiO2 Intake & Output 03/31/22 04/01/22 04/01/22 18:59 06:59 18:59 Intake Total 900 10 360 Output Total 1000 200 Balance -100 10 160 Intake: IV 10 Invasive Line 1 10 Oral 900 360 Output: Urine 1000 200 Other: Voiding Method Indwelling Catheter Bedside Commode # Voids 1 # Bowel Movements 1 1 1 - Labs CBC & Chem 7: 03/31/22 08:30 03/31/22 08:30 Labs: Abnormal Lab Results - Last 24 Hours (Table) 03/31/22 03/31/22 03/31/22 Range/Units 08:30 11:37 16:35 Chloride 112 H (98-107) mmol/L Carbon Dioxide 19 L (22-30) mmol/L BUN 26 H (7-17) mg/dL Glucose 324 H (74-99) mg/dL POC Glucose (mg/dL) 308 H 267 H (75-99) mg/dL Calcium 8.2 L (8.4-10.2) mg/dL Total Protein 5.8 L (6.3-8.2) g/dL Albumin 3.2 L (3.5-5.0) g/dL 03/31/22 04/01/22 Range/Units 20:15 06:09 Chloride (98-107) mmol/L Carbon Dioxide (22-30) mmol/L BUN (7-17) mg/dL Glucose (74-99) mg/dL POC Glucose (mg/dL) 314 H 71 L (75-99) mg/dL Calcium (8.4-10.2) mg/dL Total Protein (6.3-8.2) g/dL Albumin (3.5-5.0) g/dL Assessment and Plan Plan: Assessment: 1. Acute kidney injury mostly prerenal secondary to hypovolemia from DKA. Creatinine was 2.7 on admission - 0.72 yesterday. Creatinine in July 2021 was 0.5. No proteinuria on UA. Kidneys are small in size without hydronephrosis. 2. DKA status post insulin drip. Improved. 3. Metabolic acidosis secondary to IV fluids. 4. Hyperkalemia secondary to hyperglycemia. Improved. Plan: Maintain normal saline at 50 mL an hour. Encouraged oral intake. Blood sugar control. Avoid nephrotoxins. Continue to monitor renal function and urine output. Follow-up morning labs.
[2022-04-01 11:35] LABS: Glucose,Whole Blood 265 mg/dL (75-99)
[2022-04-01 11:39] LABS: ALT 19 U/L (4-34); AST 30 U/L (14-36); African American GFR (CKD) >90 (>60 ml/min/1.73 sqM); Alkaline Phosphatase 80 U/L (38-126); Anion Gap 5 mmol/L; Blood Urea Nitrogen 18 mg/dL (7-17); Calcium 7.9 mg/dL (8.4-10.2); Carbon Dioxide 21 mmol/L (22-30); Chloride 109 mmol/L (98-107); Glucose 285 mg/dL (74-99); Magnesium 1.7 mg/dL (1.6-2.3); Non-African American GFR(CKD) 87 (>60 ml/min/1.73 sqM); Potassium 3.6 mmol/L (3.5-5.1); Sodium 135 mmol/L (137-145); Total Bilirubin 0.4 mg/dL (0.2-1.3); Total Protein 5.5 g/dL (6.3-8.2)
[2022-04-01 12:57] LABS: Basophils % (A) 0 %; Eosinophils % (A) 0 %; HGB 11.9 gm/dL (11.4-16.0); Lymphocytes # (A) 0.5 k/uL (1.0-4.8); Lymphocytes % (A) 8 %; MCH 31.2 pg (25.0-35.0); MCHC 33.1 g/dL (31.0-37.0); MCV 94.2 fL (80.0-100.0); Mean Platelet Volume 10.1; Monocytes # (A) 0.2 k/uL (0-1.0); Monocytes % (A) 3 %; Neutrophils # (A) 4.9 k/uL (1.3-7.7); Neutrophils % (A) 87 %; Platelet Count 113 k/uL (150-450); RBC 3.83 m/uL (3.80-5.40); RDW 12.9 % (11.5-15.5); WBC 5.6 k/uL (3.8-10.6)
[2022-04-01] MEDS ORDERED: POTASSIUM CHLORIDE ER 20 MEQ TAB.ER PO STA (13:13)
--- NOTE | 2022-04-01 16:11 | FL ---
EXAMINATION TYPE: FL barium swallow w video DATE OF EXAM: 04/01/2022 COMPARISON: NONE HISTORY: Bedside difficulty swallowing TECHNIQUE: Fluoroscopy. FINDINGS: Fluoroscopic guidance was provided for the procedure performed in conjunction with the hospital [facility] pathology department. Please see complete report forthcoming from the Speech Pathology departmen t. Various consistencies from thin liquid to solids were administered. Fluoroscopy time 2 minutes 1 seconds. Number of images: 0. There is deep penetration to the level of vocal cords with thin liquids. Transient penetration is pre sent with nectar thick liquids. Patient spontaneously cleared the fluid. No significant pooling was observed in the vallecula. There was normal propulsion of the bolus. IMPRESSION: 1. Deep penetration with thin liquids and milder penetration with thick nectar thick liquids.
[2022-04-01 16:43] LABS: Glucose,Whole Blood 185 mg/dL (75-99)
--- NOTE | 2022-04-01 16:55 | P.PN ---
Subjective Progress Note Date: 04/01/22 Cassy Elise, is an 82-year-old female who presented to [facility] emergency room with a chief complaint of severe weakness She was evaluated in the emergency room vital examination on presentation revealed a temperature of 98.0 pulse 99 respiration 18 blood pressure 100/62 pulse ox 97% on room air Laboratory data revealed a white blood count of 10.8 hemoglobin 14.0 platelet count 269 sodium 138 potassium 5.8 chloride 99 CO2 20 BUN 114 creatinine 2.77 Testing in the emergency room revealed computed tomography scan of the head and neck without contrast was done in the emergency room and revealed no acute traumatic bony injury of the cervical spine, no acute intracranial hemorrhage m ass effect or midline shift, incidental finding was partially opacified mastoid air cells. Patient was admitted to medical floor for further evaluation and treatment On 03/31/2022 patient is alert and oriented 3. Patient reports that she feels much improved. Creatinine has normalized 0.7 to bun 26. Hemoglobin A1c 13.4 patient will be started on long-acting insulin 10 units was in teenage sliding scale coverage at this time. At this time patient denies chest pain or shortness of breath. Patient denies nausea vomiting or diarrhea. Patient denies any urinary burning or frequency. On 04/01/2022 patient was seen and examined on the medical floor she is alert and oriented 3 in no apparent distress she was noticed by her nurse to be choking on food and coughing after eating she is scheduled for modified barium swallow tomorrow, otherwise she is feeling well and denies any complaints at this time vital exam reveals a temperature of 97.5 pulse 91 respirations 16 blood pressure 133/78 pulse ox 96% on room air laboratory data reveals a white blood count of 5.6 hemoglobin 11.9 platelet count 113 BUN 18 creatinine 0.57 glucose is 258 however she had glucose down to 71 this morning, we are continuing to adjust her insulin dose currently she is maintained on Lantus 8 units at bedtime and Humalog sliding scale, will continue to follow possible transfer to the long term tomorrow for rehab Objective - Vital Signs Vital signs: Vital Signs Temp 97.7 F 04/01/22 16:00 Pulse 85 04/01/22 16:00 Resp 16 04/01/22 16:00 BP 143/76 04/01/22 16:00 Pulse Ox 96 04/01/22 16:00 FiO2 Intake & Output 03/31/22 04/01/22 04/01/22 18:59 06:59 18:59 Intake Total 900 10 480 Output Total 1000 200 Balance -100 10 280 Weight 49.895 kg Intake: IV 10 Invasive Line 1 10 Oral 900 480 Output: Urine 1000 200 Other: Voiding Method Indwelling Catheter Bedside Commode Bedside Commode # Voids 1 1 # Bowel Movements 1 1 1 - Exam In general patient is alert and oriented x 3 in no distress HEENT head normocephalic and atraumatic Neck is supple no JVD no goiter no lymphadenopathy no carotid bruit Chest examination is clear to auscultation no crackles no wheezing Cardiac exam reveals regular heart sounds S1 and S2 no gallops no murmurs Abdomen is soft nontender no organomegaly with normal bowel sounds Extremity exam reveals no edema no cyanosis or clubbing Neurological examination reveals no gross focal deficits - Labs CBC & Chem 7: 04/01/22 10:46 04/01/22 10:46 Labs: Abnormal Lab Results - Last 24 Hours (Table) 03/31/22 04/01/22 04/01/22 Range/Units 20:15 06:09 10:46 Plt Count (150-450) k/uL Lymphocytes # (1.0-4.8) k/uL Sodium 135 L (137-145) mmol/L Chloride 109 H (98-107) mmol/L Carbon Dioxide 21 L (22-30) mmol/L BUN 18 H (7-17) mg/dL Glucose 285 H (74-99) mg/dL POC Glucose (mg/dL) 314 H 71 L (75-99) mg/dL Calcium 7.9 L (8.4-10.2) mg/dL Total Protein 5.5 L (6.3-8.2) g/dL Albumin 3.0 L (3.5-5.0) g/dL 04/01/22 04/01/22 04/01/22 Range/Units 10:46 11:32 16:41 Plt Count 113 L (150-450) k/uL Lymphocytes # 0.5 L (1.0-4.8) k/uL Sodium (137-145) mmol/L Chloride (98-107) mmol/L Carbon Dioxide (22-30) mmol/L BUN (7-17) mg/dL Glucose (74-99) mg/dL POC Glucose (mg/dL) 265 H 185 H (75-99) mg/dL Calcium (8.4-10.2) mg/dL Total Protein (6.3-8.2) g/dL Albumin (3.5-5.0) g/dL Assessment and Plan Plan: Severe hyperglycemia, no previous known history of diabetes mellitus. Hemoglobin A1c 13.4. Patient will be started on 10 units long-acting plus sliding scale coverage Acute kidney injury, with elevated BUN at 114 and creatinine at 2.77. Resolved Hyperkalemia with potassium at 5.8 on presentation. Resolved Evidence of hypothyroidism TSH 6.16. Patient started on Synthroid DVT prophylaxis Lovenox. GI prophylaxis Pepcid Hemoglobin A1c 13.4. maintained on Lantus 10 units plus sliding scale coverage Nephrology services are following Kidney ultrasound negative for hydronephrosis PT OT and manager social media are following Patient will likely need rehab upon discharge
[2022-04-01 19:35] LABS: Glucose,Whole Blood 198 mg/dL (75-99)
[2022-04-01] MEDS: SODIUM CHLORIDE 0.9% 1,000 ML IV SCH (20:30)
[2022-04-01] MEDS ORDERED: INSULIN DETEMIR (LEVEMIR) 100 UNIT/ML SYR SQ SCH (21:00)
[2022-04-01] MEDS: MELATONIN 5 MG TABLET PO PRN (22:07)
[2022-04-02] MEDS: SODIUM CHLORIDE 0.9% 1,000 ML IV SCH (06:40)
[2022-04-02 06:49] LABS: Glucose,Whole Blood 61 mg/dL (75-99)
[2022-04-02] MEDS: INSULIN ASPART (NovoLOG) 100 UNIT/ML VIAL SQ SCH ×2 (06:51→12:05)
[2022-04-02] MEDS: LEVOTHYROXINE 25 MCG TAB PO SCH (06:58)
[2022-04-02 07:00] LABS: Glucose,Whole Blood 75 mg/dL (75-99)
[2022-04-02] MEDS: FAMOTIDINE 20 MG TAB PO SCH (08:16)
[2022-04-02] MEDS: CHOLECALCIFEROL 125 MCG (5000 IU) TABLET PO SCH (08:16)
[2022-04-02] MEDS: ENOXAPARIN 40 MG/0.4 ML SYRINGE SQ SCH (08:16)
[2022-04-02] MEDS: ASPIRIN 81 MG PO SCH (08:16)
[2022-04-02] MEDS: ursodioL 300 MG CAP PO SCH (08:16)
[2022-04-02 09:53] VITALS: RESP 18
--- NOTE | 2022-04-02 10:26 | P.DS ---
Providers Date of admission: 03/29/22 17:45 Expected date of discharge: 04/02/22 Attending physician: Kalli Duran Consults: 03/29/22 18:13 Consult Physician Routine Consulting Provider: Rosy Miller Consult Reason/Comments: LAVONNE Do you want consulting provider notified?: Yes [facility] Course: Discharge diagnosis Severe hyperglycemia, no previous known history of diabetes mellitus. Hemoglobin A1c 13.4. Patient will be started on 10 units long-acting plus sliding scale coverage Acute kidney injury, with elevated BUN at 114 and creatinine at 2.77. Resolved Hyperkalemia with potassium at 5.8 on presentation. Resolved Evidence of hypothyroidism TSH 6.16. Patient started on Synthroid Hospital course Cassy Elise, is an 82-year-old female who presented to [facility] emergency room with a chief complaint of severe weakness She was evaluated in the emergency room vital examination on presentation revealed a temperature of 98.0 pulse 99 respiration 18 blood pressure 100/62 pulse ox 97% on room air Laboratory data revealed a white blood count of 10.8 hemoglobin 14.0 platelet count 269 sodium 138 potassium 5.8 chloride 99 CO2 20 BUN 114 creatinine 2.77 Testing in the emergency room revealed computed tomography scan of the head and neck without contrast was done in the emergency room and revealed no acute traumatic bony injury of the cervical spine, no acute intracranial hemorrhage mass effect or midline shift, incidental finding was partially opacified mastoid air cells. Patient was admitted to medical floor for further evaluation and treatment On 03/31/2022 patient is alert and oriented 3. Patient reports that she feels much improved. Creatinine has normalized 0.7 to bun 26. Hemoglobin A1c 13.4 patient will be started on long-acting insulin 10 units was in teenage sliding scale coverage at this time. At this time patient denies chest pain or shortness of breath. Patient denies nausea vomiting or diarrhea. Patient denies any urinary burning or frequency. On 04/01/2022 patient was seen and examined on the medical floor she is alert and oriented 3 in no apparent distress she was noticed by her nurse to be choking on food and coughing after eating she is scheduled for modified barium swallow tomorrow, otherwise she is feeling well and denies any complaints at this time vital exam reveals a temperature of 97.5 pulse 91 respirations 16 blood pressure 133/78 pulse ox 96% on room air laboratory data reveals a white blood count of 5.6 hemoglobin 11.9 platelet count 113 BUN 18 creatinine 0.57 glucose is 258 however she had glucose down to 71 this morning, we are continuing to adjust her insulin dose currently she is maintained on Lantus 8 units at bedtime and Humalog sliding scale, will continue to follow possible [facility] On 04/02/2022 patient will be DC'd to [facility] facility. Patient is alert and oriented 3. Discussed case with speech pathologist modified barium was reviewed continued recommended regular diet with thin liquids patient can follow-up with speech therapy if needed continue small bites of food. Patient will be DC'd on oral medication for diabetes mellitus Actos and Jardiance. Continue to monitor blood sugar. Patient also be discharged on Synthroid rechec k TSH level in 6 weeks. Hydrochlorothiazide DC'd upon discharge and lisinopril decreased. At this time patient denies chest pain or shortness of breath. Patient denies nausea vomiting or diarrhea. Patient denies any urinary burning or frequency Patient Condition at Discharge: Stable Plan - Discharge Summary New Discharge Prescriptions: New Pioglitazone [Actos] 30 mg PO DAILY 30 Days #30 tab Empagliflozin [Jardiance] 25 mg PO DAILY 30 Days #30 tablet Levothyroxine Sodium [Synthroid] 25 mcg PO DAILY@0630 tab Melatonin 10 mg PO HS PRN tab PRN Reason: Insomnia Continue Ubidecarenone [Co Q-10] 100 mg PO DAILY Aspirin [Adult Low Dose Aspirin EC] 81 mg PO DAILY Cholecalciferol [Vitamin D3 (125 Mcg = 5000 Iu)] 125 mcg PO DAILY ursodioL [Ursodiol] 300 mg PO BID Changed lisinopriL 20 mg PO DAILY #0 Discontinued Potassium Chloride [K-Tab ER] 10 meq PO DAILY hydroCHLOROthiazide 25 mg PO DAILY Discharge Medication List Aspirin [Adult Low Dose Aspirin EC] 81 mg PO DAILY 06/07/17 [History] Ubidecarenone [Co Q-10] 100 mg PO DAILY 06/07/17 [History] Cholecalciferol [Vitamin D3 (125 Mcg = 5000 Iu)] 125 mcg PO DAILY 03/29/22 [History] ursodioL [Ursodiol] 300 mg PO BID 03/29/22 [History] Empagliflozin [Jardiance] 25 mg PO DAILY 30 Days #30 tablet 04/02/22 [Rx] Levothyroxine Sodium [Synthroid] 25 mcg PO DAILY@0630 tab 04/02/22 [Rx] Melatonin 10 mg PO HS PRN tab 04/02/22 [Rx] Pioglitazone [Actos] 30 mg PO DAILY 30 Days #30 tab 04/02/22 [Rx] lisinopriL 20 mg PO DAILY #0 04/02/22 [Rx] Follow up Appointment(s)/Referral(s): None,Stated [REFERRING] - 1-2 days Yahir Mcclelland DO [STAFF PHYSICIAN] - 1 Week Kalli Duran MD [STAFF PHYSICIAN] - 1 Week Activity/Diet/Wound Care/Special Instructions: activity as tolerated Diet regular diet with small bites of food Patient to be followed by Dr. Dr. Duran Admission CBC and CMP within 1 week Discharge Disposition: TRANSFER TO SNF/ECF
--- NOTE | 2022-04-02 10:38 | P.PN ---
Subjective Patient is seen in follow-up for acute kidney injury. GFR back to baseline. Oral intake good. Has been voiding. Hemodynamically stable. No active complaints. Blood sugar stable. Vital signs are stable. General: Awake. No acute distress. HEENT: Head exam is unremarkable. LUNGS: Breath sounds decreased. HEART: Rate and Rhythm are regular. ABDOMEN: Soft, no distention. EXTREMITITES: No edema. Objective - Vital Signs Vital signs: Vital Signs Temp 98.5 F 04/02/22 08:13 Pulse 92 04/02/22 08:13 Resp 18 04/02/22 08:13 BP 125/72 04/02/22 08:13 Pulse Ox 97 04/02/22 08:13 FiO2 Intake & Output 04/01/22 04/02/22 04/02/22 18:59 06:59 18:59 Intake Total 600 30 240 Output Total 400 Balance 200 30 240 Weight 49.895 kg Intake: IV 30 Invasive Line 1 20 Invasive Line 2 10 Oral 600 240 Output: Urine 400 Other: Voiding Method Bedside Commode Bedside Commode Bedside Commode # Voids 1 1 1 # Bowel Movements 1 1 - Labs CBC & Chem 7: 04/01/22 10:46 04/01/22 10:46 Labs: Abnormal Lab Results - Last 24 Hours (Table) 04/01/22 04/01/22 04/01/22 Range/Units 10:46 10:46 11:32 Plt Count 113 L (150-450) k/uL Lymphocytes # 0.5 L (1.0-4.8) k/uL Sodium 135 L (137-145) mmol/L Chloride 109 H (98-107) mmol/L Carbon Dioxide 21 L (22-30) mmol/L BUN 18 H (7-17) mg/dL Glucose 285 H (74-99) mg/dL POC Glucose (mg/dL) 265 H (75-99) mg/dL Calcium 7.9 L (8.4-10.2) mg/dL Total Protein 5.5 L (6.3-8.2) g/dL Albumin 3.0 L (3.5-5.0) g/dL 04/01/22 04/01/22 04/02/22 Range/Units 16:41 19:34 06:46 Plt Count (150-450) k/uL Lymphocytes # (1.0-4.8) k/uL Sodium (137-145) mmol/L Chloride (98-107) mmol/L Carbon Dioxide (22-30) mmol/L BUN (7-17) mg/dL Glucose (74-99) mg/dL POC Glucose (mg/dL) 185 H 198 H 61 L (75-99) mg/dL Calcium (8.4-10.2) mg/dL Total Protein (6.3-8.2) g/dL Albumin (3.5-5.0) g/dL Assessment and Plan Plan: Assessment: 1. Acute kidney injury mostly prerenal secondary to hypovolemia from DKA. Creatinine was 2.7 on admission - 0.57 yesterday. Creatinine in July 2021 was 0.5. No proteinuria on UA. Kidneys are small in size without hydronephrosis. 2. DKA status post insulin drip. Improved. 3. Metabolic acidosis secondary to IV fluids. Improved. 4. Hyperkalemia secondary to hyperglycemia. Resolved. Plan: Maintain normal saline at 50 mL an hour. Encouraged oral intake. Blood sugar control. Avoid nephrotoxins. Continue to monitor renal function and urine output. Follow-up morning labs.
[2022-04-02 11:47] LABS: Basophils % (A) 0 %; Eosinophils % (A) 1 %; HCT 34.5 % (34.0-46.0); HGB 11.3 gm/dL (11.4-16.0); Lymphocytes # (A) 0.8 k/uL (1.0-4.8); Lymphocytes % (A) 17 %; MCH 30.6 pg (25.0-35.0); MCHC 32.7 g/dL (31.0-37.0); MCV 93.8 fL (80.0-100.0); Mean Platelet Volume 9.2; Monocytes # (A) 0.2 k/uL (0-1.0); Monocytes % (A) 4 %; Neutrophils # (A) 3.7 k/uL (1.3-7.7); Neutrophils % (A) 75 %; Platelet Count 111 k/uL (150-450); RBC 3.68 m/uL (3.80-5.40); WBC 4.9 k/uL (3.8-10.6)
[2022-04-02 11:48] LABS: Glucose,Whole Blood 191 mg/dL (75-99)
[2022-04-02 12:03] LABS: ALT 19 U/L (4-34); AST 30 U/L (14-36); African American GFR (CKD) >90 (>60 ml/min/1.73 sqM); Albumin 2.7 g/dL (3.5-5.0); Alkaline Phosphatase 68 U/L (38-126); Anion Gap 5 mmol/L; Blood Urea Nitrogen 13 mg/dL (7-17); Calcium 8.1 mg/dL (8.4-10.2); Carbon Dioxide 23 mmol/L (22-30); Chloride 105 mmol/L (98-107); Glucose 230 mg/dL (74-99); Magnesium 1.7 mg/dL (1.6-2.3); Non-African American GFR(CKD) 86 (>60 ml/min/1.73 sqM); Potassium 3.9 mmol/L (3.5-5.1); Sodium 133 mmol/L (137-145); Total Bilirubin 0.2 mg/dL (0.2-1.3); Total Protein 5.2 g/dL (6.3-8.2)
[2022-04-02 15:28] VITALS: BP 134/58; PULSE 87; TEMP 98.7
--- NOTE | 2022-04-06 08:13 | CDI ---
Documentation Clarification Form Date: 04/06/22 From: Merlene Craft Admit Date: 03/29/2022 05:45:00 PM Patient Name: Cassy Elise Visit Number: [id number] Discharge Date: 04/02/2022 04:06:00 PM ATTENTION: The Clinical Documentation Specialists (CDI) and [facility] Coding Staff appreciate your assistance in clarifying documentation. Please respond to the clarification below the line at the bottom and electronically sign. The CDI & [facility] Coding staff will review the response and follow-up if needed. Please note: Queries are made part of the Legal Health Record. If you have any questions, please contact the author of this message via ITS. Dr. Kalli Duran, Conflicting documentation has been found in the medical record. As attending physician, please provide clarification. ED Note patient admitted due to DKA (diabetic ketoacidosis). Glucose greater than 600. Per your H&P, PNs and DS patient admitted with severe hyperglycemia, no previous known history of diabetes mellitus. History/Risk Factors: metabolic encephalopathy, LAVONNE, cerebral palsy, HLD, HTN, liver disease, hypothyroidism, hyperkalemia, curvature of the spine Clinical Indicators: Glucose 969, POC glucose >600, A1c 13.4, lactic acid 2.4, Acetone, Qual positive. Glucose on discharge day 230. POC glucose on discharge 191. Treatment: IV fluids, IV Insulin regular, than Insulin Aspart, Insulin Detemir. Discharged on Actos and Jardiance Please clarify which diagnosis is most appropriate: [ xxx ] DKA, Type II DM [ ] Hyperglycemia [ ] Other (please specify) [ ] Unable to determine MTDD
== END 2022-04-02 16:06 | DRG 637 ==
LOC: EC 14:47 → SUPCPDRO 14:47 → 3SCARD 17:45
PROVIDERS: ADMIT Internal Medicine; ATTEND Internal Medicine
DX: E11.10 Type 2 diabetes mellitus with ketoacidosis without coma (principal); G93.41 Metabolic encephalopathy; N17.9 Acute kidney failure, unspecified; G80.9 Cerebral palsy, unspecified; E78.5 Hyperlipidemia, unspecified; Z20.822 Contact with and (suspected) exposure to COVID-19; I10 Essential (primary) hypertension; K76.9 Liver disease, unspecified; E87.5 Hyperkalemia; E03.9 Hypothyroidism, unspecified; E86.1 Hypovolemia; M43.9 Deforming dorsopathy, unspecified; M19.90 Unspecified osteoarthritis, unspecified site; Z79.82 Long term (current) use of aspirin; Z79.899 Other long term (current) drug therapy; Z86.73 Personal history of transient ischemic attack (TIA), and cerebral infarction without residual deficits; Z60.2 Problems related to living alone; Z85.3 Personal history of malignant neoplasm of breast; Z92.3 Personal history of irradiation; Z90.89 Acquired absence of other organs; Z90.49 Acquired absence of other specified parts of digestive tract; Z87.19 Personal history of other diseases of the digestive system; Z90.11 Acquired absence of right breast and nipple; Z87.39 Personal history of other diseases of the musculoskeletal system and connective tissue; Z98.890 Other specified postprocedural states; Z88.0 Allergy status to penicillin
CPT/HCPCS: 36415; 70450; 71046; 72125; 74230; 76770; 80051; 80053; 81001; 82009; 82140; 82565; 82803; 82947; 83036; 83605; 83735; 84100; 84439; 84443; 84484; 84520; 85025; 85610; 85730; 87635; 94760; 96360; 99291

== ENCOUNTER → 2022-07-26 | Outpatient (CLI) | payer MEDICARE ==
--- NOTE | 2022-07-26 10:05 | US ---
EXAMINATION TYPE: US liver DATE OF EXAM: 07/26/2022 COMPARISON: Liver ultrasound 01/25/2022 03/29/2022 CLINICAL HISTORY: PRIMARY BILIARY CIRRHOSIS. Abnormal labs per patient, hx liver disease. Routine ex am. TECHNIQUE: Multiple sonographic images of the right upper quadrant are obtained. FINDINGS: EXAM MEASUREMENTS: Liver Length: 12.3 cm Gallbladder Wall: 0.2 cm CBD: 0.2 cm Right Kidney: 8.5 x 4.9 x 4.1 cm Pancreas: Head and body not well visualized Liver: Heterogenous, coarse Gallbladder: wnl Evidence for sonographic Hernandez's sign: neg CBD: wnl Right Kidney: Dilated collecting systems vs mild hydronephrosis new from 03/29/2022. IMPRESSION: 1. Nodular contour to liver consistent with cirrhosis. 2. New right right hydronephrosis correlate clinically.
[2022-07-26 16:03] LABS: HCT 37.1 % (37.2-46.3); HGB 11.8 g/dL (12.0-15.0); MCH 30.6 pg (27.0-32.0); MCHC 31.8 g/dL (32.0-37.0); MCV 96.1 fL (80.0-97.0); Mean Platelet Volume 10.4 fL (9.5-12.2); NRBC Per 100 WBC 0 /100 WBCS (0.0-0.0); Platelet Count 257 X 10*3/uL (140-440); RBC 3.86 X 10*6/uL (4.10-5.20); RDW 13.6 % (11.5-14.5); WBC 5.36 X 10*3/uL (4.50-10.00)
[2022-07-26 16:57] LABS: ALT 15 U/L (8-44); AST 25 U/L (13-35); Albumin 4.2 g/dL (3.8-4.9); Albumin/Globulin Ratio 1.58 (1.60-3.17); Alkaline Phosphatase 60 U/L (41-126); Bilirubin, Conjugated <0.20 mg/dL (0.20-0.40); Globulin 2.6 g/dL (1.6-3.3); Total Protein 6.8 g/dL (6.2-8.2)
== END | disposition home or self-care (01) ==
LOC: RADUSWWP 08:49
PROVIDERS: ATTEND Internal Medicine Gastroenterology
DX: N13.30 Unspecified hydronephrosis (principal); K76.89 Other specified diseases of liver
CPT/HCPCS: 36415; 76705; 80076; 82105; 85027

== ENCOUNTER → 2022-08-02 | Outpatient (CLI) | payer MEDICARE ==
--- NOTE | 2022-08-02 16:09 | US ---
EXAMINATION TYPE: US carotid duplex BILAT DATE OF EXAM: 08/02/2022 COMPARISON: NONE CLINICAL HISTORY: I65.23 CAROTID STENOSIS. TECHNIQUE: Carotid duplex ultrasound examination. Indirect Doppler criteria was utilized. FINDINGS: EXAM MEASUREMENTS: RIGHT: Peak Systolic Velocity (PSV) cm/sec ----- Right CCA: 70.6 ----- Right ICA: 69.9 ----- Right ECA: 89.4 ICA/CCA ratio: 0.99 RIGHT: End Diastole cm/sec ----- Right CCA: 8.2 ----- Right ICA: 16.5 ----- Right ECA: 0.0 LEFT: Peak Systolic Velocity (PSV) cm/sec ----- Left CCA: 74.6 ----- Left ICA: 70.6 ----- Left ECA: 80.6 ICA/CCA ratio: 0.95 LEFT: End Diastole cm/sec ----- Left CCA: 12.0 ----- Left ICA: 12.7 ----- Left ECA: 2.2 VERTEBRALS (direction of flow): Right Vertebral: Antegrade Left Vertebral: Antegrade Rhythm: Normal BATTERY HAND NOTES: No significant stenosis seen IMPRESSION: No evidence for hemodynamically significant stenosis. Criteria for Assigning % of Stenosis / Diameter reduction (Estimation based on the indirect measurements of the internal carotid artery velocities (ICA PSV). 1. Normal (no stenosis)=ICA PSV < 125 cm/s: ratio < 2.0: ICA EDV<40 cm/s. 2. Less than 50% stenosis=ICA PSV < 125 cm/s: ratio < 2.0: ICA EDV<40 cm/s. 3. 50 to 69% stenosis=ICA PSV of 125 to 230 cm/s: ration 2.0 ? 4.0: ICA EDV 40-100 cm/s. 4. Greater than 70% stenosis to near occlusion= ICA PSV > 230 cm/s: ratio > 4.0: ICA EDV > 100 cm/s. 5. Near occlusion= ICA PSV velocities may be low or undetectable: variable ratio and ICA EDV. 6. Total occlusion=unable to detect flow.
--- NOTE | 2022-08-04 13:03 | CA ---
Transthoracic Echo Report Name: Cassy Elise Age: 82 Gender: F : 1940 Exam Date: 08/02/2022 14:56 Exam Location: [place] [facility] Ht (in): 60 Wt (lb): 102 Ordering Physician: Conrad Mayfield MD Attending/Referring Phys: Rehab Care Assistant Iveth Agosto RDCS Procedure CPT: Indications: I34.0 NONRHEUMATIC MITRAL (VALVE) INSUFFICIENCY Cardiac Hx: Technical Quality: Contrast 1: Total Dose (mL): Contrast 2: Total Dose (mL): MEASUREMENTS (Male / Female) Normal Values 2D ECHO LV Diastolic Diameter PLAX 3.7 cm 4.2 - 5.9 / 3.9 - 5.3 cm LV Systolic Diameter PLAX 2.2 cm IVS Diastolic Thickness 0.7 cm 0.6 - 1.0 / 0.6 - 0.9 cm LVPW Diastolic Thickness 0.8 cm 0.6 - 1.0 / 0.6 - 0.9 cm LV Relative Wall Thickness 0.4 RV Internal Dim ED PLAX 3.0 cm LA Systolic Diameter LX 2.5 cm 3.0 - 4.0 / 2.7 - 3.8 cm LA Volume 25.0 cm??? 18 - 58 / 22 - 52 cm??? M-MODE Aortic Root Diameter MM 2.8 cm AV Cusp Separation MM 1.9 cm DOPPLER AV Peak Velocity 133.6 cm/s AV Peak Gradient 7.1 mmHg MV Area PHT 2.9 cm??? Mitral E Point Velocity 88.5 cm/s Mitral A Point Velocity 92.3 cm/s Mitral E to A Ratio 1.0 MV Deceleration Time 260.0 ms MV E' Velocity 5.6 cm/s Mitral E to MV E' Ratio 15.9 TR Peak Velocity 244.4 cm/s TR Peak Gradient 23.9 mmHg Right Ventricular Systolic Press 28.0 mmHg FINDINGS Left Ventricle Left ventricular ejection fraction is estimated at 60-65 %. Left ventricular cavity size normal. Left ventricular wall thickness normal. Right Ventricle Normal right ventricular size and function. Right ventricular systolic pressure within normal limits. Right Atrium Normal right atrial size. Left Atrium Normal left atrial size. No evidence for an atrial septal defect. Mitral Valve Structurally normal mitral valve. No mitral stenosis, regurgitation or prolapse. Aortic Valve Trileaflet aortic valve. No aortic valve stenosis or regurgitation. Tricuspid Valve Mild tricuspid regurgitation. Pulmonic Valve Trace pulmonic regurgitation. Pericardium Normal pericardium. No pericardial effusion. Aorta Normal size aortic root and proximal ascending aorta. CONCLUSIONS Normal left ventricular ejection fraction 60-65% Normal left ventricle thickness No mitral regurgitation Mild tricuspid regurgitation RVSP 28 Previewed by: Dr. Eugene Wolfe DO (Electronically Signed) Final Date: 03 August 2022 06:33
== END | disposition home or self-care (01) ==
LOC: RADECHMAIN 14:29
PROVIDERS: ATTEND Internal Medicine
DX: I07.1 Rheumatic tricuspid insufficiency (principal); I65.23 Occlusion and stenosis of bilateral carotid arteries
CPT/HCPCS: 93306; 93880

== ENCOUNTER → 2022-08-19 | Outpatient (CLI) | payer MEDICARE ==
--- NOTE | 2022-08-19 15:09 | CT ---
EXAMINATION TYPE: CT abdomen pelvis wo/w con CT DLP: 571.4 mGycm, Automated exposure control for dose reduction was used. DATE OF EXAM: 08/19/2022 2:12 PM COMPARISON: Renal ultrasound 03/29/2022, liver ultrasound 07/26/2022. CLINICAL INDICATION:Female, 82 years old with history of N13.2 Hydronephrosis with renal and ureteral calculi; hydronephrosis TECHNIQUE: Standard CT of the abdomen and pelvis before and after the uneventful administration of 80 cc of Isovue-300 intravenously. Oral contrast was administered.. Coronal and sagittal reformats we re performed. FINDINGS: LOWER CHEST: Lung bases are clear. Coronary arterial calcifications. ABDOMEN LIVER: Unremarkable GALLBLADDER AND BILE DUCTS: Unremarkable. PANCREAS: Unremarkable. SPLEEN: Unremarkable. ADRENAL GLANDS: Unremarkable. KIDNEYS AND URETERS: No hydronephrosis or renal calculi. The kidneys enhance symmetrically. Bilateral renal sinus cysts demonstrated largest on the left measuring up to 2.2 cm. Additional left mid kidne y cyst identified measuring up to 1.6 cm. PELVIS BLADDER: Underdistended but grossly unremarkable. REPRODUCTIVE: Retroverted uterus with calcified fibroids. ABDOMEN & PELVIS STOMACH AND BOWEL: Moderate to large size hiatal hernia with approximately 50% of the stomach the bravo phragm. Enteric contrast reaches the ascending colon. Stool is present throughout the proximal colon. No evidence of bowel obstruction. PERITONEUM: No evidence of pneumoperitoneum or free fluid. VASCULATURE: Mild atherosclerotic calcifications are present throughout the abdominal aorta and its b ranches. No evidence of aortic aneurysm. MUSCULOSKELETAL: No acute osseous abnormalities. No aggressive osseous lesions. LYMPH NODES: No gross evidence for lymphadenopathy. SOFT TISSUE/ABDOMINAL WALL: Unremarkable IMPRESSION: 1. No hydronephrosis or renal calculi. 2. Bilateral renal sinus cysts. 3. Fibroid changes of the uterus. 4. Moderate to large sized hiatal hernia.
== END | disposition home or self-care (01) ==
LOC: RADCTMAIN 11:42
PROVIDERS: ATTEND Internal Medicine
DX: N13.2 Hydronephrosis with renal and ureteral calculous obstruction (principal); D25.9 Leiomyoma of uterus, unspecified; K44.9 Diaphragmatic hernia without obstruction or gangrene; N28.1 Cyst of kidney, acquired
CPT/HCPCS: 82565; 84520; 74178; 36415; Q9967

== ENCOUNTER → 2022-09-09 | Outpatient (CLI) | payer MEDICARE ==
--- NOTE | 2022-09-09 13:02 | US ---
EXAMINATION TYPE: US liver DATE OF EXAM: 09/09/2022 COMPARISON: 08/19/2022 CT CLINICAL HISTORY: 82-year-old female K74.3 BILIARY CIRRHOSIS. TECHNIQUE: Multiple sonographic images of the right upper quadrant are obtained. FINDINGS: EXAM MEASUREMENTS: Liver Length: 10.3 cm Gallbladder Wall: 0.1 cm CBD: 0.3 cm Right Kidney: 9.1 x 4.1 x 4.4 cm Pancreas: Echogenic foci at the head of the pancreas likely prominent vascular reflectors. No calcifi cation seen on the patient's recent CT. Liver: Slightly heterogeneous echotexture. The right liver lobe appears atrophic. Many images show a nodular hepatic contour. No focal lesion seen. Gallbladder: wnl Evidence for sonographic Hernandez's sign: No CBD: wnl Right Kidney: multiple parapelvic cysts mimicking hydronephrosis. Benign parapelvic cysts are confir med when correlating with patient's prior CT. The largest cyst measures 1.5 x 1.5 x 1.0cm. IMPRESSION: 1. Cirrhosis with nodular hepatic contour. No focal lesion seen. 2. No gallstones or biliary duct dilatation. 3. Parapelvic cysts of the right kidney.
[2022-09-09 14:58] LABS: HCT 34.1 % (37.2-46.3); HGB 11.1 g/dL (12.0-15.0); MCH 30.4 pg (27.0-32.0); MCHC 32.6 g/dL (32.0-37.0); MCV 93.4 fL (80.0-97.0); Mean Platelet Volume 10.7 fL (9.5-12.2); NRBC Per 100 WBC 0 /100 WBCS (0.0-0.0); Platelet Count 188 X 10*3/uL (140-440); RBC 3.65 X 10*6/uL (4.10-5.20); RDW 13.3 % (11.5-14.5); WBC 5.13 X 10*3/uL (4.50-10.00)
[2022-09-09 15:30] LABS: African American GFR (CKD) 64.2 (60.0-200.0); Albumin 4.5 g/dL (3.8-4.9); Albumin/Globulin Ratio 1.98 (1.60-3.17); Anion Gap 8.8 mmol/L (10.00-18.00); BUN/Creat Ratio 33.26 Ratio (12.00-20.00); Blood Urea Nitrogen 31.8 mg/dL (9.0-27.0); Calcium 9.9 mg/dL (8.7-10.3); Carbon Dioxide 29.2 mmol/L (20.0-27.5); Globulin 2.3 g/dL (1.6-3.3); Non-African American GFR(CKD) 55.4 (60.0-200.0); Potassium 4.1 mmol/L (3.5-5.5); Total Bilirubin 0.6 mg/dL (0.30-1.20); Total Protein 6.7 g/dL (6.2-8.2)
== END | disposition home or self-care (01) ==
LOC: RADUSWWP 09:27
PROVIDERS: ATTEND Internal Medicine Gastroenterology
DX: K74.60 Unspecified cirrhosis of liver (principal); N28.1 Cyst of kidney, acquired; K74.3 Primary biliary cirrhosis
CPT/HCPCS: 76705; 80053; 82105; 85027

== ENCOUNTER → 2023-06-15 | Outpatient (CLI) | payer MEDICARE ==
--- NOTE | 2023-06-15 08:59 | MM ---
Reason for Exam: Follow-up at short interval from prior study. Last mammogram was performed 1 year(s) and 10 month(s) ago. Patient History: Menarche at age 12. Patient has no children. Postmenopausal. Breast cancer. Bilateral Excisional Biopsy. Lumpectomy on the Right side. Tissue Density: The breast tissue is heterogeneously dense. This may lower the sensitivity of mammography. Findings: Analyzed By CAD. There are multiple benign appearing punctate calcifications, stable from comparison within the upper left breast. A core marker is within this region of the calcifications. There is asymmetry of the breast with a smaller right breast compared to the left. Prior lumpectomy is evident on the right upper breast. Surgical clips are present. Benign vascular calcifications present within the right breast. No significant interval changes are evident. No suspicious groups of microcalcifications, spiculated or lobular masses, architectural distortion or other secondary signs of malignancy are mammographically apparent. Overall Assessment: Benign, BI-RAD 2 Management: Screening Mammogram of both breasts in 1 year. A negative mammogram report should not preclude additional follow up of suspicious palpable abnormalities. Patient should continue monthly self breast exam. A clinical breast exam by your physician is recommended on an annual basis and results should be correlated with mammographic findings. Electronically signed and approved by: Giovani Alberto D.O. Radiologis
--- NOTE | 2023-06-15 23:24 | BD ---
EXAMINATION TYPE: Axial Bone Density DATE OF EXAM: 06/15/2023 CLINICAL HISTORY: 83 years old Female. ICD-10 CODE: [id number] OSTEO OF R HIP Height: 4 ft 11 in Weight: 103 FRAX RISK QUESTIONS: Alcohol (3 or more units per day): no Family History (Parent hip fracture): no Glucocorticoids (More than 3mos): no (Ex: prednisone, prednisolone, methylprednisolone, dexamethasone, and hydrocortisone). History of Fracture in Adulthood: yes Secondary Osteoporosis: 1. Type 1 Diabetes: type 2 2. Hyperthyroidism: no 3. Menopause before 45: yes 4. Malnutrition: no 5. Chronic liver disease: yes Rheumatoid Arthritis: no Current Tobacco Use: no RISK FACTORS HISTORY OF: Surgery to Spine/Hip(right/left)/Wrist (right/left): no Family History of Osteoporosis: yes Active: cerebral palsy uses a walker Diet low in dairy products/other sources of calcium: no Postmenopausal woman: yes Take estrogen and/or progesterone medications: no Lost more than 2 inches in height since high school: no Frequent falls: no Poor Health: good Hyperparathyroidism: no Adrenal Insufficiency: no MEDICATIONS: Thyroid Medications: yes Which medication: levothyroxine How Lon year Additional Medications: levothyroxine, diabetes meds, Additional History: EXAM MEASUREMENTS: Bone mineral densitometry was performed using the [employer] System. Bone mineral density as measured about the Lumbar spine is: ----- L1-L4(G/cm2): 0.987 T Score Values are as follows: ----- L1: -2.3 ----- L2: -2.5 ----- L3: -1.5 ----- L4: -0.7 ----- L1-L4: -1.6 Z Score Values are as follows: ----- L1: 0.2 ----- L2: 0.0 ----- L3: 1.0 ----- L4: 1.8 ----- L1-L4: 0.9 Bone mineral density has: decreased -8.6 % since study of: 2019 Bone mineral density about the R hip (g/cm2): 0.608 Bone mineral density about the L hip (g/cm2): 0.615 T Score values are as follows: -----R Neck: -3.1 -----L Neck: -3.0 -----R Total: -2.4 -----L Total: -2.3 Z Score values are as follows: -----R Neck: -0.4 -----L Neck: -0.4 -----R Total: 0.2 -----L Total: 0.3 Bone mineral density has: decreased -7.9 % since study of: 2019 FRAX%s: The graph provided illustrates a 30.1 % chance for a major osteoporotic fx and a 12.6 % chanc e for the hips probability for fx in 10 years time. IMPRESSION: Osteoporosis (T Score less than -2.5). There is increased fracture risk and therapy is usually indicated based on age. Re-Screen 1-2 years. NOTE: T-SCORE=SD OF THE YOUNG ADULT MEAN.
== END | disposition home or self-care (01) ==
LOC: RADBDWWP 08:22
PROVIDERS: ATTEND Internal Medicine
DX: C50.911 Malignant neoplasm of unspecified site of right female breast (principal); M81.0 Age-related osteoporosis without current pathological fracture; M85.89 Other specified disorders of bone density and structure, multiple sites; Z78.0 Asymptomatic menopausal state
CPT/HCPCS: 77080; 77066; G0279; 77062

== ENCOUNTER → 2024-01-23 | Outpatient (CLI) | payer MEDICARE ==
[2024-01-23 11:58] LABS: HCT 36.8 % (37.2-46.3); HGB 11.7 g/dL (12.0-15.0); MCH 30.6 pg (27.0-32.0); MCHC 31.8 g/dL (32.0-37.0); MCV 96.3 FL (80.0-97.0); Mean Platelet Volume 11.1 FL (9.5-12.2); NRBC Per 100 WBC 0 X 10*3/uL (0.00-0.01); Platelet Count 193 X 10*3/uL (140-440); RBC 3.82 X 10*6/uL (4.10-5.20); RDW 13.2 % (11.5-14.5); WBC 3.49 X 10*3/uL (4.50-10.00)
--- NOTE | 2024-01-23 23:53 | US ---
EXAMINATION TYPE: US liver DATE OF EXAM: 01/23/2024 COMPARISON: US 2022 CLINICAL INDICATION: Female, 83 years old with history of K74.3 PRIMARY BILARY; TECHNIQUE: Multiple sonographic images of the right upper quadrant are obtained. FINDINGS: EXAM MEASUREMENTS: Liver Length: 14.0 cm Gallbladder Wall: 0.2 cm CBD: 0.4 cm Right Kidney: 7.9 x 4.5 x 4.6 cm Pancreas: visualized portions wnl, limited by overlying midline bowel gas Liver: appears small in size, heterogeneous, coarse echotexture Gallbladder: wnl Evidence for sonographic Hernandez's sign: no CBD: wnl Right Kidney: multiple peripelvic cysts with largest measuring 1.8cm IMPRESSION: 1. Right renal cysts
== END | disposition home or self-care (01) ==
LOC: RADUSWWP 07:49
PROVIDERS: ATTEND Internal Medicine Gastroenterology
DX: N28.1 Cyst of kidney, acquired (principal); K74.3 Primary biliary cirrhosis
CPT/HCPCS: 76705; 82105; 85027

== ENCOUNTER → 2024-02-14 | Outpatient (CLI) | payer MEDICARE ==
--- NOTE | 2024-02-14 18:54 | CA ---
Transthoracic Echo Report Name: Cassy Elise Age: 83 Gender: F : 1940 Exam Date: 02/14/2024 12:56 Exam Location: [facility] Ht (in): 60 Wt (lb): 106 Ordering Physician: Conrad Mayfield MD Attending/Referring Phys: Conrad Mayfield MD Engine Lathe Operator Iveth Agosto RDCS Procedure CPT: Indications: I36.1 nonrheumatic valve regurgitation Cardiac Hx: Technical Quality: Good Contrast 1: Total Dose (mL): Contrast 2: Total Dose (mL): MEASUREMENTS (Male / Female) Normal Values 2D ECHO LV Diastolic Diameter PLAX 3.8 cm 4.2 - 5.9 / 3.9 - 5.3 cm LV Systolic Diameter PLAX 2.2 cm IVS Diastolic Thickness 0.8 cm 0.6 - 1.0 / 0.6 - 0.9 cm LVPW Diastolic Thickness 0.7 cm 0.6 - 1.0 / 0.6 - 0.9 cm LV Relative Wall Thickness 0.4 RV Internal Dim ED PLAX 2.8 cm LA Systolic Diameter LX 2.8 cm 3.0 - 4.0 / 2.7 - 3.8 cm LV Diastolic Volume MOD BP 44.4 cm??? 67 - 155 / 56 - 104 cm??? LV Systolic Volume MOD BP 14.7 cm??? 22 - 58 / 19 - 49 cm??? LV Ejection Fraction MOD BP 66.9 % >= 55 % LV Cardiac Index MOD BP 1309.8 cm???/min???m??? LV Diastolic Volume MOD 4C 43.6 cm??? LV Systolic Volume MOD 4C 14.6 cm??? LV Ejection Fraction MOD 4C 66.4 % LV Cardiac Index MOD 4C 1278.0 cm???/min???m??? LV Diastolic Length 4C 6.8 cm LV Systolic Length 4C 5.7 cm LV Diastolic Volume MOD 2C 40.8 cm??? LV Systolic Volume MOD 2C 13.4 cm??? LV Ejection Fraction MOD 2C 67.1 % LV Cardiac Index MOD 2C 1206.5 cm???/min???m??? LV Diastolic Length 2C 6.1 cm LV Systolic Length 2C 4.9 cm LA Volume 31.7 cm??? 18 - 58 / 22 - 52 cm??? LA Volume Index 22.2 cm???/m??? 16 - 28 cm???/m??? M-MODE Aortic Root Diameter MM 2.6 cm MV E Point Septal Separation 0.3 cm AV Cusp Separation MM 1.7 cm DOPPLER AV Peak Velocity 142.7 cm/s AV Peak Gradient 8.1 mmHg MV Area PHT 3.9 cm??? Mitral E Point Velocity 83.9 cm/s Mitral A Point Velocity 77.2 cm/s Mitral E to A Ratio 1.1 MV Deceleration Time 195.6 ms TR Peak Velocity 220.3 cm/s TR Peak Gradient 19.4 mmHg Right Ventricular Systolic Press 23.6 mmHg FINDINGS Left Ventricle Left ventricular ejection fraction is estimated at 55-60 %. Left ventricular cavity size normal. Left ventricular wall thickness normal. Right Ventricle Normal right ventricular size. Right ventricular systolic pressure within normal limits. Right Atrium Normal right atrial size. Left Atrium Normal left atrial size. Mitral Valve Structurally normal mitral valve. Trace mitral regurgitation. Aortic Valve Trileaflet aortic valve. No aortic valve stenosis or regurgitation. Tricuspid Valve Trace to mild tricuspid regurgitation. Pulmonic Valve Structurally normal pulmonic valve. Trace pulmonic regurgitation. Pericardium No pericardial effusion. Aorta Normal size aortic root and proximal ascending aorta. CONCLUSIONS Normal LV size and systolic function Prominent pericardial stripe posteriorly Previewed by: Dr. Surendra Xavier MD (Electronically Signed) Final Date: 14 February 2024 18:53
--- NOTE | 2024-02-14 19:34 | US ---
EXAMINATION TYPE: US carotid duplex BILAT DATE OF EXAM: 02/14/2024 COMPARISON: US 08/02/2022 CLINICAL INDICATION: Female, 83 years old with history of I65.23 CAROTID STENOSIS BILATERAL; Diabetes , hypertension, hyperlipidemia. TECHNIQUE: Carotid duplex ultrasound examination. Indirect Doppler criteria was utilized. FINDINGS: EXAM MEASUREMENTS: RIGHT: Peak Systolic Velocity (PSV) cm/sec ----- Right CCA: 101.6 ----- Right ICA: 124.5 ----- Right ECA: 148.0 ICA/CCA ratio: 1.2 RIGHT: End Diastole cm/sec ----- Right CCA: 17.3 ----- Right ICA: 15.4 ----- Right ECA: 9.0 LEFT: Peak Systolic Velocity (PSV) cm/sec ----- Left CCA: 98.7 ----- Left ICA: 135.0 ----- Left ECA: 119.8 ICA/CCA ratio: 1.4 LEFT: End Diastole cm/sec ----- Left CCA: 15.9 ----- Left ICA: 12.3 ----- Left ECA: 0.0 VERTEBRALS (direction of flow): Right Vertebral: Antegrade Left Vertebral: Antegrade Rhythm: Normal ASH CONVEYOR OPERATOR NOTES: *Plaque seen bilateral bulbs. ICA is tortuous bilaterally. Elevated velocity within right ECA and left prox ICA. IMPRESSION: 1. Mild scattered partially calcified plaque in the carotid bifurcations bilaterally. 2. Mild less than 50% stenosis of the right internal carotid artery. 3. Based on color and grayscale imaging and PA systolic velocities there is a moderate 50-69% stenosi s of the left internal carotid artery. 4. Comparison to previous study, reveals increasing plaque formation bilaterally with interval develo pment of a moderate stenosis of the left internal carotid artery. Criteria for Assigning % of Stenosis / Diameter reduction (Estimation based on the indirect measurements of the internal carotid artery velocities (ICA PSV). 1. Normal (no stenosis)=ICA PSV < 125 cm/s: ratio < 2.0: ICA EDV<40 cm/s. 2. Less than 50% stenosis=ICA PSV < 125 cm/s: ratio < 2.0: ICA EDV<40 cm/s. 3. 50 to 69% stenosis=ICA PSV of 125 to 230 cm/s: ration 2.0 ? 4.0: ICA EDV 40-100 cm/s. 4. Greater than 70% stenosis to near occlusion= ICA PSV > 230 cm/s: ratio > 4.0: ICA EDV > 100 cm/s. 5. Near occlusion= ICA PSV velocities may be low or undetectable: variable ratio and ICA EDV. 6. Total occlusion=unable to detect flow.
== END | disposition home or self-care (01) ==
LOC: RADUSWWP 11:47
PROVIDERS: ATTEND Internal Medicine
DX: I65.23 Occlusion and stenosis of bilateral carotid arteries (principal); I36.1 Nonrheumatic tricuspid (valve) insufficiency; I10 Essential (primary) hypertension; E11.9 Type 2 diabetes mellitus without complications; E78.5 Hyperlipidemia, unspecified
CPT/HCPCS: 93306; 93880

== ENCOUNTER → 2024-04-16 | Outpatient (CLI) | payer MEDICARE ==
[2024-04-16 15:24] LABS: ALT 22 U/L (8-44); AST 31 U/L (13-35); Albumin 4.9 g/dL (3.8-4.9); Albumin/Globulin Ratio 1.75 Ratio (1.60-3.17); Alkaline Phosphatase 65 U/L (41-126); BUN/Creat Ratio 31.17 Ratio (12.00-20.00); Blood Urea Nitrogen 37.4 mg/dL (9.0-27.0); Calcium 9.9 mg/dL (8.7-10.3); Carbon Dioxide 25.4 mmol/L (21.6-31.8); Chloride 100 mmol/L (96-109); Globulin 2.8 g/dL (1.6-3.3); Glucose 80 mg/dL (70-110); Potassium 4.5 mmol/L (3.5-5.5); Sodium 138 mmol/L (135-145); Total Bilirubin 0.5 mg/dL (0.3-1.2); Total Protein 7.7 g/dL (6.2-8.2)
== END | disposition home or self-care (01) ==
LOC: LABWHC1 08:59
PROVIDERS: ATTEND Nurse Practitioner Family
DX: K74.3 Primary biliary cirrhosis (principal)
CPT/HCPCS: 36415; 80053

== ENCOUNTER → 2024-09-28 | Outpatient (CLI) | payer MEDICARE ==
--- NOTE | 2024-09-28 12:01 | US ---
EXAMINATION TYPE: US liver DATE OF EXAM: 09/28/2024 COMPARISON: Multiple, Most recent 01/23/2024 CLINICAL INDICATION: Female, 84 years old with history of K74.3 PRIMARY BILIARY CIRRHOSIS; Patient de nies any signs, symptoms, or relevant history TECHNIQUE: Grayscale and color Doppler imaging of the right upper quadrant was performed. FINDINGS: EXAM MEASUREMENTS: Liver Length: 12.7 cm Gallbladder Wall: 0.2 cm CBD: 0.4 cm Right Kidney: 9.5 x 5.0 x 5.5 cm CHECK TOTALER NOTES: Pancreas: wnl Liver: Heterogenous with nodular contour. No suspicious masses. Gallbladder: wnl Evidence for sonographic Hernandez's sign: Yes CBD: wnl Right Kidney: wnl IMPRESSION: 1. Heterogenous nodular contour to liver correlate for cirrhosis. No suspicious masses identified. 2. Box Brander reports positive sonographic Hernandez sign, gallbladder is incompletely distended. No a dditional imaging signs of acute cholecystitis. No cholelithiasis. [facility], , 09/28/2024 11:58 AM
[2024-09-28 15:55] LABS: HCT 35.6 % (37.2-46.3); HGB 11.6 g/dL (12.0-15.0); MCH 30.5 pg (27.0-32.0); MCHC 32.6 g/dL (32.0-37.0); MCV 93.7 FL (80.0-97.0); Mean Platelet Volume 10.6 FL (9.5-12.2); NRBC Per 100 WBC 0 X 10*3/uL (0.00-0.01); Platelet Count 200 X 10*3/uL (140-440); RDW 13.2 % (11.5-14.5); WBC 6.24 X 10*3/uL (4.50-10.00)
[2024-09-28 15:57] LABS: ALT 15 U/L (8-44); AST 24 U/L (13-35); Albumin 4.6 g/dL (3.8-4.9); Albumin/Globulin Ratio 1.84 Ratio (1.60-3.17); Alkaline Phosphatase 64 U/L (41-126); Blood Urea Nitrogen 35.6 mg/dL (9.0-27.0); Calcium 9.7 mg/dL (8.7-10.3); Carbon Dioxide 27.5 mmol/L (21.6-31.8); Chloride 100 mmol/L (96-109); Globulin 2.5 g/dL (1.6-3.3); Glucose 104 mg/dL (70-110); Potassium 4.6 mmol/L (3.5-5.5); Sodium 139 mmol/L (135-145); Total Bilirubin 0.4 mg/dL (0.3-1.2); Total Protein 7.1 g/dL (6.2-8.2)
== END | disposition home or self-care (01) ==
LOC: RADUSWWP 09:54
PROVIDERS: ATTEND Internal Medicine Gastroenterology
DX: K74.3 Primary biliary cirrhosis (principal); K82.8 Other specified diseases of gallbladder
CPT/HCPCS: 76705; 80053; 82105; 85027

== ENCOUNTER → 2025-02-21 | Outpatient (CLI) | payer MEDICARE ==
--- NOTE | 2025-02-21 10:13 | US ---
EXAMINATION TYPE: US liver DATE OF EXAM: 02/21/2025 COMPARISON: US(09/28/2024) CLINICAL INDICATION: Female, 84 years old with history of K74.3 PRIMARY BILIARY CIRRHOSIS; f/u every 6 months TECHNIQUE: Grayscale and color Doppler imaging of the right upper quadrant. FINDINGS: EXAM MEASUREMENTS: Liver Length: 12.8 Gallbladder Wall: 0.2m CBD: 0.3m, color Doppler imaging was utilized to isolate the common bile duct for measurement. Right Kidney: 8.5x3.2x4.4cm COMMISSION ASSOCIATE NOTES: limited exam due to overlying bowel/gas Pancreas: Not well seen, possibly atrophic and partially obscured by bowel gas. Liver: Heterogeneous and coarsened echotexture. No focal lesion seen. Gallbladder: No stones seen Evidence for sonographic Hernandez's sign: No CBD: wnl Right Kidney: No hydronephrosis or masses seen IMPRESSION: 1. Heterogeneous and coarsened echotexture of the liver in keeping with patient's reported PBC. No di screte lesion is seen. 2. No gallstones or biliary ductal dilatation. [facility], , 02/21/2025 10:11 AM
[2025-02-21 15:36] LABS: MCH 29.8 pg (27.0-32.0); MCHC 31.4 g/dL (32.0-37.0); MCV 94.9 FL (80.0-97.0); Mean Platelet Volume 10.8 FL (9.5-12.2); NRBC Per 100 WBC 0 X 10*3/uL (0.00-0.01); Platelet Count 219 X 10*3/uL (140-440); RBC 3.69 X 10*6/uL (4.10-5.20); RDW 13.3 % (11.5-14.5); WBC 5.11 X 10*3/uL (4.50-10.00)
[2025-02-21 15:50] LABS: ALT 18 U/L (8-44); AST 28 U/L (13-35); Albumin 4.6 g/dL (3.8-4.9); Albumin/Globulin Ratio 1.77 Ratio (1.60-3.17); Alkaline Phosphatase 63 U/L (41-126); BUN/Creat Ratio 36.09 Ratio (12.00-20.00); Blood Urea Nitrogen 39.7 mg/dL (9.0-27.0); Calcium 9.7 mg/dL (8.7-10.3); Carbon Dioxide 24.3 mmol/L (21.6-31.8); Chloride 102 mmol/L (96-109); Globulin 2.6 g/dL (1.6-3.3); Glucose 123 mg/dL (70-110); Potassium 4.8 mmol/L (3.5-5.5); Sodium 139 mmol/L (135-145); Total Bilirubin 0.4 mg/dL (0.3-1.2); Total Protein 7.2 g/dL (6.2-8.2)
== END | disposition home or self-care (01) ==
LOC: RADUSWWP 09:19
PROVIDERS: ATTEND Internal Medicine Gastroenterology
DX: K74.3 Primary biliary cirrhosis (principal); K76.89 Other specified diseases of liver
CPT/HCPCS: 36415; 76705; 80053; 82105; 85027